=== PATIENT | male | born 1970 | race Caucasian/White ===

== ENCOUNTER 2017-12-20 13:54 | Inpatient (IN) | payer OTHER ==
[2017-12-20 14:37] VITALS: BMI 26.6
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
[2017-12-20] MEDS ORDERED: MAGNESIUM HYDROX 2400MG/30ML ORAL SUSPENSION 30 ML CUP PO PRN (15:08)
[2017-12-20] MEDS ORDERED: P-EPHED 60MG/TRIPROLIDI 2.5MG TABLET PO PRN (15:08)
[2017-12-20] MEDS ORDERED: LOPERAMIDE HCL 2 MG CAPSULE PO PRN (15:08)
[2017-12-20] MEDS ORDERED: ACETAMINOPHEN 325 MG TABLET (FP) PO PRN (15:08)
[2017-12-20] MEDS ORDERED: MAGNESIUM CITRATE 300 ML BOTTLE PO PRN (15:08)
[2017-12-20] MEDS ORDERED: guaiFENesin/D-METHORPHAN HB 10 ML UNIT-DOSE CUPS PO PRN (15:08)
[2017-12-20] MEDS ORDERED: chlordiazePOXIDE HCL 25 MG CAPSULE PO ONE (15:08)
[2017-12-20] MEDS ORDERED: IBUPROFEN 400 MG TABLET (FP) PO PRN (15:08)
[2017-12-20] MEDS ORDERED: MAG HYDROX/AL HYDROX/SIMETH 30 ML UNIT-DOSE CUP PO PRN (15:08)
[2017-12-20] MEDS ORDERED: MENTHOL/PHENOL 1 EACH UD MM PRN (15:08)
[2017-12-20] MEDS: chlordiazePOXIDE HCL 25 MG CAPSULE PO SCH ×2 (18:00→22:26)
[2017-12-20] MEDS ORDERED: MELATONIN 5 MG TABLETS PO PRN (22:00)
[2017-12-20] MEDS: THIAMINE HCL 100 MG TABLET (FP) PO SCH (22:26)
[2017-12-20 23:24] LABS: URINE APPEARANCE TURBID; URINE BILIRUBIN NEGATIVE (<2.0 mg/dL); URINE COLOR AMBER; URINE GLUCOSE (UA) NEGATIVE (NEGATIVE); URINE KETONE NEGATIVE (NEGATIVE); URINE LEUK ESTERASE NEGATIVE (NEGATIVE); URINE NITRITE NEGATIVE (NEGATIVE)
[2017-12-20 23:27] LABS: URINE PROTEIN 1+ (NEGATIVE)
[2017-12-20 23:36] LABS: URINE MUCUS MANY
[2017-12-21] MEDS: chlordiazePOXIDE HCL 25 MG CAPSULE PO SCH ×4 (05:38→22:45)
[2017-12-21 10:16] LABS: HEMATOCRIT 40.1 % (35.4-49); HEMOGLOBIN 13.6 GM/dL (11.7-16.9); MCH 31.7 pg (25.7-33.7); MEAN CELL VOLUME 93.4 fl (80-96); MEAN PLT VOLUME 8.4 fl (7.5-11.1); PLATELET COUNT 195 K/MM3 (134-434); RBC 4.29 M/mm3 (4.00-5.60); RDW 14.6 % (11.9-15.9); WHITE BLOOD COUNT 5.3 K/mm3 (4.0-10.0)
[2017-12-21] MEDS: PRENATAL VITAMINS W/ FOLIC ACID TABLET (FP) PO SCH (10:26)
[2017-12-21] MEDS: hydrOXYzine PAMOATE 25 MG CAPSULE (FP) PO PRN ×2 (10:30→22:46)
[2017-12-21 10:35] LABS: ALBUMIN 3.2 g/dl (3.4-5.0); ALK PHOS 74 U/L (45-117); ANION GAP 10 MMOL/L (8-16); BLOOD UREA NITROGEN 10 mg/dL (7-18); CHLORIDE 100 mmol/L (98-107); CO2 28 mmol/L (21-32); CREATININE 0.5 mg/dL (0.55-1.3); GLUCOSE,RANDOM 75 mg/dL (74-106); POTASSIUM 3.6 mmol/L (3.5-5.1); SGOT/AST 70 U/L (15-37); SGPT/ALT 108 U/L (13-61); SODIUM 138 mmol/L (136-145); TOT PROT 6.7 g/dl (6.4-8.2)
[2017-12-21] MEDS ORDERED: ONDANSETRON *ODT* 4 MG TABLET SL ONE (10:38)
[2017-12-21] MEDS: RANITIDINE HCL 150 MG TABLET (FP) PO SCH ×2 (10:50→22:45)
[2017-12-21] MEDS: BACLOFEN 10 MG TABLET (FP) PO SCH ×2 (14:54→22:45)
--- NOTE | 2017-12-21 17:05 | PN ---
S CIWA - CIWA Score Nausea/Vomitin-Mild Nausea/No Vomiting Muscle Tremors: 3 Anxiety: 3 Agitation: 3 Paroxysmal Sweats: 1-Minimal Palms Moist Orientation: 0-Oriented Tacttile Disturbances: 1-Very Mild Itch/Numbness Auditory Disturbances: 0-None Visual Disturbances: 0-None Headache: 0-None Present CIWA-Ar Total Score: 12 BHS Progress Note (SOAP) Subjective: gi distress tremor sweat nausea restlessness Objective: 12/21/17 17:06 Vital Signs Temperature 97.9 F 12/21/17 16:49 Pulse Rate 59 L 12/21/17 16:49 Respiratory Rate 18 12/21/17 16:49 Blood Pressure 139/86 12/21/17 16:49 O2 Sat by Pulse Oximetry (%) Laboratory Last Values WBC 5.3 K/mm3 (4.0-10.0) 12/21/17 07:30 RBC 4.29 M/mm3 (4.00-5.60) 12/21/17 07:30 Hgb 13.6 GM/dL (11.7-16.9) 12/21/17 07:30 Hct 40.1 % (35.4-49) 12/21/17 07:30 MCV 93.4 fl (80-96) 12/21/17 07:30 MCH 31.7 pg (25.7-33.7) 12/21/17 07:30 MCHC 34.0 g/dl (32.0-35.9) 12/21/17 07:30 RDW 14.6 % (11.9-15.9) 12/21/17 07:30 Plt Count 195 K/MM3 (134-434) 12/21/17 07:30 MPV 8.4 fl (7.5-11.1) 12/21/17 07:30 Sodium 138 mmol/L (136-145) 12/21/17 07:30 Potassium 3.6 mmol/L (3.5-5.1) 12/21/17 07:30 Chloride 100 mmol/L (98-107) 12/21/17 07:30 Carbon Dioxide 28 mmol/L (21-32) 12/21/17 07:30 Anion Gap 10 MMOL/L (8-16) 12/21/17 07:30 BUN 10 mg/dL (7-18) 12/21/17 07:30 Creatinine 0.5 mg/dL (0.55-1.3) L 12/21/17 07:30 Creat Clearance w eGFR > 60 (>60) 12/21/17 07:30 Random Glucose 75 mg/dL (74-106) 12/21/17 07:30 Calcium 8.0 mg/dL (8.5-10.1) L 12/21/17 07:30 Total Bilirubin 1.0 mg/dL (0.2-1) 12/21/17 07:30 AST 70 U/L (15-37) H 12/21/17 07:30 ALT 108 U/L (13-61) H 12/21/17 07:30 Alkaline Phosphatase 74 U/L (45-117) 12/21/17 07:30 Total Protein 6.7 g/dl (6.4-8.2) 12/21/17 07:30 Albumin 3.2 g/dl (3.4-5.0) L 12/21/17 07:30 Urine Color [place] 12/20/17 21:00 Urine Appearance Turbid 12/20/17 21:00 Urine pH 5.0 (5.0-8.0) 12/20/17 21:00 Ur Specific [place] 1.023 (1.001-1.035) 12/20/17 21:00 Urine Protein 1+ (NEGATIVE) H 12/20/17 21:00 Urine Glucose (UA) Negative (NEGATIVE) 12/20/17 21:00 Urine Ketones Negative (NEGATIVE) 12/20/17 21:00 Urine Blood Negative (NEGATIVE) 12/20/17 21:00 Urine Nitrite Negative (NEGATIVE) 12/20/17 21:00 Urine Bilirubin Negative (<2.0 mg/dL) 12/20/17 21:00 Urine Urobilinogen 2.0 mg/dL (0.2-1.0) 12/20/17 21:00 Ur Leukocyte Esterase Negative (NEGATIVE) 12/20/17 21:00 Urine WBC (Auto) 5 /hpf (3-5) 12/20/17 21:00 Urine RBC (Auto) 2 /hpf (0-3) 12/20/17 21:00 Urine Mucus Many 12/20/17 21:00 RPR Titer Nonreactive (NONREACTIVE) 12/21/17 07:30 lab noted Assessment: 12/21/17 17:06 withdrawal sx Plan: continue detox
[2017-12-21] MEDS: THIAMINE HCL 100 MG TABLET (FP) PO SCH (22:45)
[2017-12-22] MEDS: BACLOFEN 10 MG TABLET (FP) PO SCH ×3 (05:37→22:04)
[2017-12-22] MEDS: chlordiazePOXIDE HCL 25 MG CAPSULE PO SCH ×2 (05:37→10:05)
[2017-12-22] MEDS: hydrOXYzine PAMOATE 25 MG CAPSULE (FP) PO PRN (07:17)
[2017-12-22] MEDS: PRENATAL VITAMINS W/ FOLIC ACID TABLET (FP) PO SCH (10:05)
[2017-12-22] MEDS: RANITIDINE HCL 150 MG TABLET (FP) PO SCH ×2 (10:05→22:04)
[2017-12-22] MEDS: chlordiazePOXIDE HCL 25 MG CAPSULE PO PRN (12:26)
--- NOTE | 2017-12-22 12:36 | PN ---
S CIWA - CIWA Score Nausea/Vomitin-No Nausea/No Vomiting Muscle Tremors: 4-Moderate,w/Arms Extend Anxiety: 3 Agitation: 3 Paroxysmal Sweats: No Perspiration Orientation: 0-Oriented Tacttile Disturbances: 0-None Auditory Disturbances: 0-None Visual Disturbances: 0-None Headache: 0-None Present CIWA-Ar Total Score: 10 BHS Progress Note (SOAP) Subjective: C/o still feeling shaky and anxious. Increased tenderness (R). Objective: A&O x 3. Mod. tremors of hands. Pacing in halls. (R) elbow with 3 inch cicula4 induration, erythema, warmth, and tenderness. Small open area area w/ small amount yellowish- reddish drainage, Vital Signs 12/22/17 12/22/17 12/22/17 06:52 09: 13:49 Temperature 96.3 F L 97.0 F L 96.0 F L Pulse Rate 57 L 98 H 96 H Respiratory 18 18 20 Rate Blood Pressure 130/82 125/87 152/90 Lab Results WBC 5.3 K/mm3 (4.0-10.0) 12/21/17 07:30 RBC 4.29 M/mm3 (4.00-5.60) 12/21/17 07:30 Hgb 13.6 GM/dL (11.7-16.9) 12/21/17 07:30 Hct 40.1 % (35.4-49) 12/21/17 07:30 MCV 93.4 fl (80-96) 12/21/17 07:30 MCHC 34.0 g/dl (32.0-35.9) 12/21/17 07:30 RDW 14.6 % (11.9-15.9) 12/21/17 07:30 Plt Count 195 K/MM3 (134-434) 12/21/17 07:30 Sodium 138 mmol/L (136-145) 12/21/17 07:30 Potassium 3.6 mmol/L (3.5-5.1) 12/21/17 07:30 Chloride 100 mmol/L (98-107) 12/21/17 07:30 Carbon Dioxide 28 mmol/L (21-32) 12/21/17 07:30 Anion Gap 10 MMOL/L (8-16) 12/21/17 07:30 BUN 10 mg/dL (7-18) 12/21/17 07:30 Creatinine 0.5 mg/dL (0.55-1.3) L 12/21/17 07:30 Random Glucose 75 mg/dL (74-106) 12/21/17 07:30 Calcium 8.0 mg/dL (8.5-10.1) L 12/21/17 07:30 Labs reviewed. 12/22/17 14:35 Assessment: Withdrawal symptoms Cellulitis (R) elbow. Plan: Continue detox. Start Keflex 500 mg PO QID Bacitracin to (R) elbow BID and cover w/ area bandaid. Warm compresses to elbow QID
[2017-12-22] MEDS: CEPHALEXIN MONOHYDRATE 500 MG CAPSULE (UD) PO SCH ×2 (17:34→23:06)
[2017-12-22] MEDS: chlordiazePOXIDE 5 MG CAPSULE PO SCH ×2 (17:34→22:04)
[2017-12-22] MEDS: THIAMINE HCL 100 MG TABLET (FP) PO SCH (22:04)
[2017-12-22] MEDS: BACITRACIN 0.9 GM PACKET TP SCH (22:04)
[2017-12-23] MEDS: chlordiazePOXIDE HCL 25 MG CAPSULE PO PRN (02:44)
[2017-12-23] MEDS: chlordiazePOXIDE 5 MG CAPSULE PO SCH ×2 (05:22→10:46)
[2017-12-23] MEDS: BACLOFEN 10 MG TABLET (FP) PO SCH ×3 (05:22→22:10)
[2017-12-23] MEDS: CEPHALEXIN MONOHYDRATE 500 MG CAPSULE (UD) PO SCH ×4 (05:22→23:21)
[2017-12-23] MEDS: RANITIDINE HCL 150 MG TABLET (FP) PO SCH ×2 (10:46→22:10)
[2017-12-23] MEDS: PRENATAL VITAMINS W/ FOLIC ACID TABLET (FP) PO SCH (10:46)
[2017-12-23] MEDS: BACITRACIN 0.9 GM PACKET TP SCH ×2 (10:46→22:10)
--- NOTE | 2017-12-23 15:04 | PN ---
S Progress Note (SOAP) Subjective: feeling better no tremor less sweat no gi distress Objective: 12/23/17 15:04 Vital Signs Temperature 96.8 F L 12/23/17 13:14 Pulse Rate 99 H 12/23/17 13:14 Respiratory Rate 18 12/23/17 13:14 Blood Pressure 133/84 12/23/17 13:14 O2 Sat by Pulse Oximetry (%) Laboratory Last Values WBC 5.3 K/mm3 (4.0-10.0) 12/21/17 07:30 RBC 4.29 M/mm3 (4.00-5.60) 12/21/17 07:30 Hgb 13.6 GM/dL (11.7-16.9) 12/21/17 07:30 Hct 40.1 % (35.4-49) 12/21/17 07:30 MCV 93.4 fl (80-96) 12/21/17 07:30 MCH 31.7 pg (25.7-33.7) 12/21/17 07:30 MCHC 34.0 g/dl (32.0-35.9) 12/21/17 07:30 RDW 14.6 % (11.9-15.9) 12/21/17 07:30 Plt Count 195 K/MM3 (134-434) 12/21/17 07:30 MPV 8.4 fl (7.5-11.1) 12/21/17 07:30 Sodium 138 mmol/L (136-145) 12/21/17 07:30 Potassium 3.6 mmol/L (3.5-5.1) 12/21/17 07:30 Chloride 100 mmol/L (98-107) 12/21/17 07:30 Carbon Dioxide 28 mmol/L (21-32) 12/21/17 07:30 Anion Gap 10 MMOL/L (8-16) 12/21/17 07:30 BUN 10 mg/dL (7-18) 12/21/17 07:30 Creatinine 0.5 mg/dL (0.55-1.3) L 12/21/17 07:30 Creat Clearance w eGFR > 60 (>60) 12/21/17 07:30 Random Glucose 75 mg/dL (74-106) 12/21/17 07:30 Calcium 8.0 mg/dL (8.5-10.1) L 12/21/17 07:30 Total Bilirubin 1.0 mg/dL (0.2-1) 12/21/17 07:30 AST 70 U/L (15-37) H 12/21/17 07:30 ALT 108 U/L (13-61) H 12/21/17 07:30 Alkaline Phosphatase 74 U/L (45-117) 12/21/17 07:30 Total Protein 6.7 g/dl (6.4-8.2) 12/21/17 07:30 Albumin 3.2 g/dl (3.4-5.0) L 12/21/17 07:30 Urine Color [place] 12/20/17 21:00 Urine Appearance Turbid 12/20/17 21:00 Urine pH 5.0 (5.0-8.0) 12/20/17 21:00 Ur Specific [place] 1.023 (1.001-1.035) 12/20/17 21:00 Urine Protein 1+ (NEGATIVE) H 12/20/17 21:00 Urine Glucose (UA) Negative (NEGATIVE) 12/20/17 21:00 Urine Ketones Negative (NEGATIVE) 12/20/17 21:00 Urine Blood Negative (NEGATIVE) 12/20/17 21:00 Urine Nitrite Negative (NEGATIVE) 12/20/17 21:00 Urine Bilirubin Negative (<2.0 mg/dL) 12/20/17 21:00 Urine Urobilinogen 2.0 mg/dL (0.2-1.0) 12/20/17 21:00 Ur Leukocyte Esterase Negative (NEGATIVE) 12/20/17 21:00 Urine WBC (Auto) 5 /hpf (3-5) 12/20/17 21:00 Urine RBC (Auto) 2 /hpf (0-3) 12/20/17 21:00 Urine Mucus Many 12/20/17 21:00 RPR Titer Nonreactive (NONREACTIVE) 12/21/17 07:30 lab noted Assessment: 12/23/17 15:05 mild withdrawal sx 12/23/17 15:05 right elbow cellulitis Plan: medically supervised detox keflex
[2017-12-23] MEDS: chlordiazePOXIDE HCL 10 MG CAPSULE PO SCH ×2 (17:52→22:10)
[2017-12-23] MEDS: THIAMINE HCL 100 MG TABLET (FP) PO SCH (22:10)
[2017-12-24] MEDS: hydrOXYzine PAMOATE 25 MG CAPSULE (FP) PO PRN (01:16)
[2017-12-24] MEDS: CEPHALEXIN MONOHYDRATE 500 MG CAPSULE (UD) PO SCH (06:04)
[2017-12-24] MEDS: chlordiazePOXIDE HCL 10 MG CAPSULE PO SCH (06:04)
[2017-12-24] MEDS: BACLOFEN 10 MG TABLET (FP) PO SCH (06:05)
[2017-12-24 08:17] VITALS: TEMP 97.5
--- NOTE | 2017-12-24 09:00 | DS ---
[facility] Detox Discharge Summary Admission Date: 12/20/17 Discharge Date: 12/24/17 - History Present History: Alcohol Dependence Additional Comments: 47 years old male admitted on 12/20/17 for alcohol withdrawal sx completed alcohol detox regimen tolerated well denies alcohol withdrawal sx alert oriented x 3 no acute distress aftercare [facility] Physical Exam Results Vital Signs: Vital Signs Temperature 97.5 F L 12/24/17 08:16 Pulse Rate 64 12/24/17 08:16 Respiratory Rate 18 12/24/17 08:16 Blood Pressure 138/76 12/24/17 08:16 O2 Sat by Pulse Oximetry (%) Pertinent Admission Physical Exam Findings: alcohol withdrawal sx Vital Signs Temperature 97.5 F L 12/24/17 09:34 Pulse Rate 89 12/24/17 09:34 Respiratory Rate 18 12/24/17 09:34 Blood Pressure 136/89 12/24/17 09:34 O2 Sat by Pulse Oximetry (%) Laboratory Last Values WBC 5.3 K/mm3 (4.0-10.0) 12/21/17 07:30 RBC 4.29 M/mm3 (4.00-5.60) 12/21/17 07:30 Hgb 13.6 GM/dL (11.7-16.9) 12/21/17 07:30 Hct 40.1 % (35.4-49) 12/21/17 07:30 MCV 93.4 fl (80-96) 12/21/17 07:30 MCH 31.7 pg (25.7-33.7) 12/21/17 07:30 MCHC 34.0 g/dl (32.0-35.9) 12/21/17 07:30 RDW 14.6 % (11.9-15.9) 12/21/17 07:30 Plt Count 195 K/MM3 (134-434) 12/21/17 07:30 MPV 8.4 fl (7.5-11.1) 12/21/17 07:30 Sodium 138 mmol/L (136-145) 12/21/17 07:30 Potassium 3.6 mmol/L (3.5-5.1) 12/21/17 07:30 Chloride 100 mmol/L (98-107) 12/21/17 07:30 Carbon Dioxide 28 mmol/L (21-32) 12/21/17 07:30 Anion Gap 10 MMOL/L (8-16) 12/21/17 07:30 BUN 10 mg/dL (7-18) 12/21/17 07:30 Creatinine 0.5 mg/dL (0.55-1.3) L 12/21/17 07:30 Creat Clearance w eGFR > 60 (>60) 12/21/17 07:30 Random Glucose 75 mg/dL (74-106) 12/21/17 07:30 Calcium 8.0 mg/dL (8.5-10.1) L 12/21/17 07:30 Total Bilirubin 1.0 mg/dL (0.2-1) 12/21/17 07:30 AST 70 U/L (15-37) H 12/21/17 07:30 ALT 108 U/L (13-61) H 12/21/17 07:30 Alkaline Phosphatase 74 U/L (45-117) 12/21/17 07:30 Total Protein 6.7 g/dl (6.4-8.2) 12/21/17 07:30 Albumin 3.2 g/dl (3.4-5.0) L 12/21/17 07:30 Urine Color [place] 12/20/17 21:00 Urine Appearance Turbid 12/20/17 21:00 Urine pH 5.0 (5.0-8.0) 12/20/17 21:00 Ur Specific [place] 1.023 (1.001-1.035) 12/20/17 21:00 Urine Protein 1+ (NEGATIVE) H 12/20/17 21:00 Urine Glucose (UA) Negative (NEGATIVE) 12/20/17 21:00 Urine Ketones Negative (NEGATIVE) 12/20/17 21:00 Urine Blood Negative (NEGATIVE) 12/20/17 21:00 Urine Nitrite Negative (NEGATIVE) 12/20/17 21:00 Urine Bilirubin Negative (<2.0 mg/dL) 12/20/17 21:00 Urine Urobilinogen 2.0 mg/dL (0.2-1.0) 12/20/17 21:00 Ur Leukocyte Esterase Negative (NEGATIVE) 12/20/17 21:00 Urine WBC (Auto) 5 /hpf (3-5) 12/20/17 21:00 Urine RBC (Auto) 2 /hpf (0-3) 12/20/17 21:00 Urine Mucus Many 12/20/17 21:00 RPR Titer Nonreactive (NONREACTIVE) 12/21/17 07:30 lab noted - Treatment Hospital Course: Detox Protocol Followed, Detoxed Safely, Responded well, Discharged Condition Good, Rehab Referral Accepted Patient has Accepted a Rehab Referral to: [facility] - Medication Discharge Medications: Ambulatory Orders Cephalexin Monohydrate [Keflex -] 500 mg PO Q6HPO #20 capsule 12/23/17 - Diagnosis (1) Alcohol dependence with uncomplicated withdrawal Status: Acute - AMA Did Patient Leave Against Medical Advice: No
[2017-12-24 09:35] VITALS: BP 136/89; PULSE 89
== END 2017-12-24 09:36 | disposition home or self-care (01) | DRG 775 ==
LOC: YASAS 13:54 → Y6N 14:59
PROC: HZ2ZZZZ Detoxification Services for Substance Abuse Treatment (ICD-10-PCS; principal; 2017-12-20)
DX: F10.230 Alcohol dependence with withdrawal, uncomplicated (principal); E86.0 Dehydration; L03.113 Cellulitis of right upper limb; M25.422 Effusion, left elbow
CPT/HCPCS: 36415; 80053; 81003; 81015; 85027; 86593; J0475; Q0162

== ENCOUNTER 2020-10-16 18:40 | Inpatient (IN) | payer OTHER ==
[2020-10-16 21:15] VITALS: BMI 28.0
[2020-10-16] MEDS ORDERED: LORazepam 1 MG TABLET PO PRN (22:16)
[2020-10-16] MEDS ORDERED: BISMUTH SUBSALICYLATE 524 MG/30 ML PO PRN (22:16)
[2020-10-16] MEDS ORDERED: ONDANSETRON *ODT* 4 MG TABLET SL PRN (22:16)
[2020-10-16] MEDS ORDERED: ACETAMINOPHEN 325 MG TABLET (FP) PO PRN ×2 (22:16)
[2020-10-16] MEDS ORDERED: IBUPROFEN 400 MG TABLET (FP) PO PRN (22:16)
[2020-10-16] MEDS ORDERED: MAG HYDROX/AL HYDROX/SIMETH 30 ML UNIT-DOSE CUP PO PRN (22:16)
[2020-10-16] MEDS ORDERED: MAGNESIUM HYDROX 2400MG/30ML ORAL SUSPENSION 30 ML CUP PO PRN (22:16)
[2020-10-16] MEDS ORDERED: MENTHOL/PHENOL 1 EACH UD MM PRN (22:16)
[2020-10-16] MEDS ORDERED: MAGNESIUM CITRATE 300 ML BOTTLE PO PRN (22:16)
[2020-10-16] MEDS ORDERED: NICOTINE POLACRILEX 2 MG GUM BUC PRN (22:16)
[2020-10-16] MEDS ORDERED: METHOCARBAMOL 500 MG TABLET PO PRN (22:16)
[2020-10-16] MEDS: LORazepam 2 MG TABLET PO SCH (23:50)
[2020-10-17] MEDS: LORazepam 2 MG TABLET PO SCH ×4 (05:22→22:15)
[2020-10-17] MEDS ORDERED: hydrOXYzine PAMOATE 25 MG CAPSULE (FP) PO SCH (06:00)
[2020-10-17] MEDS ORDERED: hydrOXYzine PAMOATE 25 MG CAPSULE (FP) PO PRN (09:12)
[2020-10-17 10:08] LABS: HEMATOCRIT 42.2 % (35.4-49); HEMOGLOBIN 14.3 GM/dL (11.7-16.9); MCH 30.7 pg (25.7-33.7); MCHC 33.8 g/dl (32.0-35.9); MEAN CELL VOLUME 90.9 fl (80-96); MEAN PLT VOLUME 9.1 fl (7.5-11.1); PLATELET COUNT 198 10^3/uL (134-434); RBC 4.64 M/mm3 (4.00-5.60); RDW 14.6 % (11.9-15.9); WHITE BLOOD COUNT 7.1 K/mm3 (4.0-10.0)
[2020-10-17 10:20] LABS: ALBUMIN 3.8 g/dl (3.4-5.0); BLOOD UREA NITROGEN 6.4 mg/dL (7-18); CALCIUM 8.4 mg/dL (8.5-10.1)
[2020-10-17 10:24] LABS: CREATININE 1.5 mg/dL (0.55-1.3)
[2020-10-17 10:25] LABS: BILIRUBIN,TOTAL 0.7 mg/dL (0.2-1)
[2020-10-17] MEDS: PRENATAL VITAMINS W/ FOLIC ACID TABLET (FP) PO SCH (10:30)
[2020-10-17] MEDS ORDERED: POTASSIUM CHLORIDE TABS 20 MEQ TABLET.ER (FP) PO ONE (10:45)
[2020-10-17] MEDS: BACITRACIN 0.9 GM PACKET TP SCH (11:00)
[2020-10-17 18:44] LABS: HIV INTERPRETATION NEGATIVE (NEGATIVE)
[2020-10-17] MEDS: THIAMINE HCL 100 MG TABLET (FP) PO SCH (22:15)
[2020-10-17] MEDS: MELATONIN 5 MG TABLETS PO SCH (22:15)
[2020-10-18] MEDS: LORazepam 1 MG TABLET PO SCH ×4 (06:01→22:12)
[2020-10-18] MEDS: BACITRACIN 0.9 GM PACKET TP SCH (10:19)
[2020-10-18] MEDS: PRENATAL VITAMINS W/ FOLIC ACID TABLET (FP) PO SCH (10:20)
[2020-10-18 10:22] LABS: HEMATOCRIT 41.9 % (35.4-49); MCH 30.6 pg (25.7-33.7); MCHC 33.5 g/dl (32.0-35.9); MEAN CELL VOLUME 91.3 fl (80-96); PLATELET COUNT 184 10^3/uL (134-434); RBC 4.59 M/mm3 (4.00-5.60); RDW 14.5 % (11.9-15.9); WHITE BLOOD COUNT 6.2 K/mm3 (4.0-10.0)
[2020-10-18] MEDS: THIAMINE HCL 100 MG TABLET (FP) PO SCH (22:12)
[2020-10-18] MEDS: MELATONIN 5 MG TABLETS PO SCH (22:14)
[2020-10-19] MEDS ORDERED: LORazepam 0.5 MG TABLET PO PRN
[2020-10-19] MEDS: LORazepam 0.5 MG TABLET PO SCH ×4 (05:56→22:20)
[2020-10-19] MEDS: PRENATAL VITAMINS W/ FOLIC ACID TABLET (FP) PO SCH (10:16)
[2020-10-19] MEDS: BACITRACIN 0.9 GM PACKET TP SCH (10:17)
[2020-10-19 11:04] LABS: BLOOD UREA NITROGEN 12.6 mg/dL (7-18); CALCIUM 8.7 mg/dL (8.5-10.1)
[2020-10-19 11:05] LABS: ALBUMIN 3.6 g/dl (3.4-5.0)
[2020-10-19 11:09] LABS: BILIRUBIN,TOTAL 0.5 mg/dL (0.2-1); CREATININE 0.8 mg/dL (0.55-1.3); TOT PROT 6.7 g/dl (6.4-8.2)
[2020-10-19] MEDS: MELATONIN 5 MG TABLETS PO SCH (22:20)
[2020-10-19] MEDS: THIAMINE HCL 100 MG TABLET (FP) PO SCH (22:20)
[2020-10-20] MEDS ORDERED: LORazepam 0.5 MG TABLET PO ONE (05:00)
[2020-10-20 07:01] VITALS: BP 136/76; PULSE 98; TEMP 98.1
== END 2020-10-20 09:21 | disposition home or self-care (01) | DRG 775 ==
LOC: YASAS 18:40 → Y3N 22:11
PROVIDERS: ADMIT Allergy & Immunology; ATTEND Allergy & Immunology
PROC: HZ2ZZZZ Detoxification Services for Substance Abuse Treatment (ICD-10-PCS; principal; 2020-10-16)
DX: F10.230 Alcohol dependence with withdrawal, uncomplicated (principal)
CPT/HCPCS: 36415; 80053; 85027; 86780; 87389; C9803; U0003; U0005

== ENCOUNTER 2020-12-02 08:10 | Inpatient (IN) | payer OTHER ==
[2020-12-02] MEDS ORDERED: MAGNESIUM HYDROX 2400MG/30ML ORAL SUSPENSION 30 ML CUP PO PRN (09:18)
[2020-12-02] MEDS ORDERED: NICOTINE 10 MG CARTRIDGE (INHALER) IH PRN (09:18)
[2020-12-02] MEDS ORDERED: LORazepam 1 MG TABLET PO PRN (09:18)
[2020-12-02] MEDS ORDERED: ONDANSETRON *ODT* 4 MG TABLET SL PRN (09:18)
[2020-12-02] MEDS ORDERED: METHOCARBAMOL 500 MG TABLET PO PRN (09:18)
[2020-12-02] MEDS ORDERED: MENTHOL/PHENOL 1 EACH UD MM PRN (09:18)
[2020-12-02] MEDS ORDERED: MAGNESIUM CITRATE 300 ML BOTTLE PO PRN (09:18)
[2020-12-02] MEDS ORDERED: MAG HYDROX/AL HYDROX/SIMETH 30 ML UNIT-DOSE CUP PO PRN (09:18)
[2020-12-02] MEDS ORDERED: ACETAMINOPHEN 325 MG TABLET (FP) PO PRN ×2 (09:18)
[2020-12-02] MEDS ORDERED: BISMUTH SUBSALICYLATE 524 MG/30 ML PO PRN (09:18)
[2020-12-02] MEDS ORDERED: LORazepam 2 MG TABLET ONE (12:03)
[2020-12-02] MEDS ORDERED: hydrOXYzine PAMOATE 25 MG CAPSULE (FP) PO ONE (12:03)
[2020-12-02] MEDS: LORazepam 2 MG TABLET PO SCH ×3 (12:12→22:37)
[2020-12-02] MEDS: hydrOXYzine PAMOATE 25 MG CAPSULE (FP) PO SCH ×4 (12:13→22:37)
[2020-12-02] MEDS ORDERED: MASKS NR ONE (12:39)
[2020-12-02] MEDS: PRENATAL VITAMINS W/ FOLIC ACID TABLET (FP) PO SCH (12:40)
[2020-12-02 14:24] VITALS: BMI 28.3
[2020-12-02] MEDS: MELATONIN 5 MG TABLETS PO SCH (22:37)
[2020-12-02] MEDS: THIAMINE HCL 100 MG TABLET (FP) PO SCH (22:37)
[2020-12-03] MEDS: hydrOXYzine PAMOATE 25 MG CAPSULE (FP) PO SCH ×5 (06:37→22:15)
[2020-12-03] MEDS: LORazepam 2 MG TABLET PO SCH ×4 (06:37→22:15)
[2020-12-03] MEDS: PRENATAL VITAMINS W/ FOLIC ACID TABLET (FP) PO SCH (11:03)
[2020-12-03] MEDS: THIAMINE HCL 100 MG TABLET (FP) PO SCH (22:15)
[2020-12-03] MEDS: MELATONIN 5 MG TABLETS PO SCH (22:16)
[2020-12-04] MEDS: LORazepam 1 MG TABLET PO SCH ×4 (06:35→22:03)
[2020-12-04] MEDS: hydrOXYzine PAMOATE 25 MG CAPSULE (FP) PO SCH ×5 (06:37→22:05)
[2020-12-04] MEDS: PRENATAL VITAMINS W/ FOLIC ACID TABLET (FP) PO SCH (10:13)
[2020-12-04] MEDS ORDERED: PNEUMOC 13-VAL CONJ-DIP CRM/PF 0.5 ML DISP.SYRIN IM ONE (12:00)
[2020-12-04] MEDS ORDERED: PNEUMOCOCCAL 23 VACCINE 0.5 ML VIAL IM ONE (12:00)
[2020-12-04] MEDS: IBUPROFEN 400 MG TABLET (FP) PO PRN (17:33)
[2020-12-04 18:25] LABS: HEMATOCRIT 39.9 % (35.4-49); HEMOGLOBIN 13.7 GM/dL (11.7-16.9); MCHC 34.4 g/dl (32.0-35.9); MEAN CELL VOLUME 93.1 fl (80-96); MEAN PLT VOLUME 10.8 fl (7.5-11.1); PLATELET COUNT 158 10^3/uL (134-434); RBC 4.29 M/mm3 (4.00-5.60); RDW 14.5 % (11.9-15.9); WHITE BLOOD COUNT 5.8 K/mm3 (4.0-10.0)
[2020-12-04 18:39] LABS: CALCIUM 8.9 mg/dL (8.5-10.1)
[2020-12-04 18:40] LABS: ALBUMIN 3.9 g/dl (3.4-5.0); BLOOD UREA NITROGEN 12.6 mg/dL (7-18)
[2020-12-04 18:43] LABS: CREATININE 0.8 mg/dL (0.55-1.3)
[2020-12-04 18:45] LABS: BILIRUBIN,TOTAL 0.7 mg/dL (0.2-1); TOT PROT 7.5 g/dl (6.4-8.2)
[2020-12-04] MEDS: THIAMINE HCL 100 MG TABLET (FP) PO SCH (22:03)
[2020-12-04] MEDS: MELATONIN 5 MG TABLETS PO SCH (22:06)
[2020-12-05] MEDS ORDERED: LORazepam 0.5 MG TABLET PO PRN
[2020-12-05] MEDS: LORazepam 0.5 MG TABLET PO SCH ×4 (05:26→22:15)
[2020-12-05] MEDS: hydrOXYzine PAMOATE 25 MG CAPSULE (FP) PO SCH (06:57)
[2020-12-05] MEDS ORDERED: hydrOXYzine PAMOATE 25 MG CAPSULE (FP) PO PRN (09:08)
[2020-12-05] MEDS: PRENATAL VITAMINS W/ FOLIC ACID TABLET (FP) PO SCH (10:01)
[2020-12-05] MEDS: IBUPROFEN 400 MG TABLET (FP) PO PRN (22:14)
[2020-12-05] MEDS: THIAMINE HCL 100 MG TABLET (FP) PO SCH (22:14)
[2020-12-05] MEDS: MELATONIN 5 MG TABLETS PO SCH (22:15)
[2020-12-06] MEDS ORDERED: LORazepam 0.5 MG TABLET PO ONE (05:00)
[2020-12-06 06:09] VITALS: BP 129/79; PULSE 64; TEMP 96.9
[2020-12-06] MEDS: PRENATAL VITAMINS W/ FOLIC ACID TABLET (FP) PO SCH (10:21)
== END 2020-12-06 08:57 | disposition home or self-care (01) | DRG 775 ==
LOC: YASAS 08:10 → Y3N 11:46
PROVIDERS: ADMIT Allergy & Immunology; ATTEND Allergy & Immunology
PROC: HZ2ZZZZ Detoxification Services for Substance Abuse Treatment (ICD-10-PCS; principal; 2020-12-02)
DX: F10.230 Alcohol dependence with withdrawal, uncomplicated (principal); R73.9 Hyperglycemia, unspecified; R74.8 Abnormal levels of other serum enzymes
CPT/HCPCS: 36415; 80053; 85027; 86780; 90732; C9803; G0009; U0003; U0005

== ENCOUNTER 2021-04-09 17:55 | Inpatient (IN) | payer OTHER ==
[2021-04-09 19:59] VITALS: BMI 25.9
[2021-04-09] MEDS ORDERED: MAG HYDROX/AL HYDROX/SIMETH 30 ML UNIT-DOSE CUP PO PRN (21:31)
[2021-04-09] MEDS ORDERED: IBUPROFEN 400 MG TABLET (FP) PO PRN (21:31)
[2021-04-09] MEDS ORDERED: MAGNESIUM HYDROX 2400MG/30ML ORAL SUSPENSION 30 ML CUP PO PRN (21:31)
[2021-04-09] MEDS ORDERED: MENTHOL/PHENOL 1 EACH UD MM PRN (21:31)
[2021-04-09] MEDS ORDERED: MAGNESIUM CITRATE 300 ML BOTTLE PO PRN (21:31)
[2021-04-09] MEDS ORDERED: METHOCARBAMOL 500 MG TABLET PO PRN (21:31)
[2021-04-09] MEDS ORDERED: BISMUTH SUBSALICYLATE 524 MG/30 ML PO PRN (21:31)
[2021-04-09] MEDS ORDERED: ACETAMINOPHEN 325 MG TABLET (FP) PO PRN ×2 (21:31)
[2021-04-10] MEDS ORDERED: LORazepam 1 MG TABLET PO PRN (00:26)
[2021-04-10] MEDS: ONDANSETRON *ODT* 4 MG TABLET SL PRN ×2 (03:10→17:52)
[2021-04-10] MEDS: MELATONIN 5 MG TABLETS PO SCH ×2 (03:13→22:21)
[2021-04-10] MEDS: THIAMINE HCL 100 MG TABLET (FP) PO SCH ×2 (03:13→22:20)
[2021-04-10] MEDS: LORazepam 2 MG TABLET PO SCH ×4 (05:41→22:20)
[2021-04-10] MEDS: PRENATAL VITAMINS W/ FOLIC ACID TABLET (FP) PO SCH (10:23)
[2021-04-10 10:46] LABS: HEMATOCRIT 40.1 % (35.4-49); HEMOGLOBIN 14.1 GM/dL (11.7-16.9); MCH 31.3 pg (25.7-33.7); MCHC 35.1 g/dl (32.0-35.9); MEAN CELL VOLUME 89.4 fl (80-96); PLATELET COUNT 199 10^3/uL (134-434); RBC 4.49 M/mm3 (4.00-5.60); RDW 13.9 % (11.9-15.9)
[2021-04-10 11:28] LABS: BLOOD UREA NITROGEN 11.2 mg/dL (7-18); CALCIUM 8.6 mg/dL (8.5-10.1)
[2021-04-10 11:30] LABS: CREATININE 0.6 mg/dL (0.55-1.3)
[2021-04-10 11:32] LABS: BILIRUBIN,TOTAL 1.1 mg/dL (0.2-1)
[2021-04-10 11:34] LABS: TOT PROT 7.1 g/dl (6.4-8.2)
[2021-04-10] MEDS: amLODIPine BESYLATE 5 MG TABLET (FP) PO SCH (15:33)
[2021-04-11] MEDS: LORazepam 1 MG TABLET PO SCH ×4 (05:44→22:34)
[2021-04-11] MEDS: amLODIPine BESYLATE 5 MG TABLET (FP) PO SCH (10:38)
[2021-04-11] MEDS: PRENATAL VITAMINS W/ FOLIC ACID TABLET (FP) PO SCH (10:38)
[2021-04-11] MEDS: THIAMINE HCL 100 MG TABLET (FP) PO SCH (22:33)
[2021-04-11] MEDS: MELATONIN 5 MG TABLETS PO SCH (22:34)
[2021-04-12] MEDS ORDERED: LORazepam 0.5 MG TABLET PO PRN
[2021-04-12] MEDS: LORazepam 0.5 MG TABLET PO SCH ×2 (06:13→11:31)
[2021-04-12 09:44] VITALS: BP 142/90; PULSE 94; TEMP 98
[2021-04-12] MEDS ORDERED: amLODIPine BESYLATE 10 MG TABLET (FP) PO SCH (10:00)
[2021-04-12] MEDS: PRENATAL VITAMINS W/ FOLIC ACID TABLET (FP) PO SCH (11:31)
[2021-04-13] MEDS ORDERED: LORazepam 0.5 MG TABLET PO ONE (05:00)
== END 2021-04-12 10:15 | disposition home or self-care (01) | DRG 773 ==
LOC: YASAS 17:55 → Y6N 04-10 01:48
PROVIDERS: ADMIT Allergy & Immunology; ATTEND Allergy & Immunology
PROC: HZ2ZZZZ Detoxification Services for Substance Abuse Treatment (ICD-10-PCS; principal; 2021-04-10)
DX: F10.230 Alcohol dependence with withdrawal, uncomplicated (principal); F11.20 Opioid dependence, uncomplicated; R74.01 Elevation of levels of liver transaminase levels; Z51.81 Encounter for therapeutic drug level monitoring; Z79.899 Other long term (current) drug therapy
CPT/HCPCS: 36415; 80053; 85027; 86780; C9803-CS; Q0162; U0003; U0005

== ENCOUNTER 2021-09-07 13:43 | Inpatient (IN) | payer OTHER ==
[2021-09-07 16:06] VITALS: BMI 26.6
[2021-09-07] MEDS ORDERED: LOPERAMIDE HCL 2 MG CAPSULE PO PRN (16:47)
[2021-09-07] MEDS ORDERED: ONDANSETRON *ODT* 4 MG TABLET SL PRN (16:47)
[2021-09-07] MEDS ORDERED: IBUPROFEN 600 MG TABLET (FP) PO PRN (16:47)
[2021-09-07] MEDS ORDERED: DICYCLOMINE HCL 10 MG CAPSULE PO PRN (16:47)
[2021-09-07] MEDS ORDERED: NICOTINE 10 MG CARTRIDGE (INHALER) IH PRN (16:47)
[2021-09-07] MEDS ORDERED: MAG HYDROX/AL HYDROX/SIMETH 30 ML UNIT-DOSE CUP PO PRN (16:47)
[2021-09-07] MEDS ORDERED: MAGNESIUM CITRATE 300 ML BOTTLE PO PRN (16:47)
[2021-09-07] MEDS ORDERED: BISMUTH SUBSALICYLATE 524 MG/30 ML PO PRN (16:47)
[2021-09-07] MEDS ORDERED: BENZOCAINE/MENTHOL (CHLORASEPTIC ) LOZENGE MM PRN (16:47)
[2021-09-07] MEDS ORDERED: NALOXONE HCL (KLOXXADO) 8 MG SPRAY NS PRN (16:47)
[2021-09-07] MEDS ORDERED: MAGNESIUM HYDROX 2400MG/30ML ORAL SUSPENSION 30 ML CUP PO PRN (16:47)
[2021-09-07] MEDS ORDERED: METHOCARBAMOL 500 MG TABLET PO PRN (16:47)
[2021-09-07] MEDS ORDERED: chlordiazePOXIDE HCL 25 MG CAPSULE PO PRN (16:47)
[2021-09-07] MEDS ORDERED: IBUPROFEN 400 MG TABLET (FP) PO PRN (16:47)
[2021-09-07] MEDS ORDERED: ACETAMINOPHEN 325 MG TABLET (FP) PO PRN ×2 (16:47)
[2021-09-07] MEDS ORDERED: chlordiazePOXIDE HCL 25 MG CAPSULE ONE (19:49)
[2021-09-07] MEDS: chlordiazePOXIDE HCL 25 MG CAPSULE PO SCH (23:18)
[2021-09-07] MEDS: hydrOXYzine PAMOATE 25 MG CAPSULE (FP) PO SCH ×2 (23:19→23:54)
[2021-09-07] MEDS: MELATONIN 5 MG TABLETS PO SCH (23:19)
[2021-09-07] MEDS: THIAMINE HCL 100 MG TABLET (FP) PO SCH (23:20)
[2021-09-08] MEDS: hydrOXYzine PAMOATE 25 MG CAPSULE (FP) PO SCH ×5 (05:23→22:53)
[2021-09-08] MEDS: chlordiazePOXIDE HCL 25 MG CAPSULE PO SCH ×4 (05:23→22:53)
[2021-09-08] MEDS: PRENATAL VITAMINS W/ FOLIC ACID TABLET (FP) PO SCH (10:17)
[2021-09-08 13:08] LABS: HEMATOCRIT 39.8 % (35.4-49); HEMOGLOBIN 13.6 GM/dL (11.7-16.9); MCH 31.8 pg (25.7-33.7); MCHC 34.1 g/dl (32.0-35.9); MEAN PLT VOLUME 8.4 fl (7.5-11.1); PLATELET COUNT 228 10^3/uL (134-434); RBC 4.28 M/mm3 (4.00-5.60); WHITE BLOOD COUNT 4.8 K/mm3 (4.0-10.0)
[2021-09-08 13:22] LABS: ALBUMIN 3.4 g/dl (3.4-5.0); BLOOD UREA NITROGEN 8.2 mg/dL (7-18); CALCIUM 8.8 mg/dL (8.5-10.1)
[2021-09-08 13:25] LABS: CREATININE 0.6 mg/dL (0.55-1.3)
[2021-09-08 13:27] LABS: BILIRUBIN,TOTAL 0.5 mg/dL (0.2-1); TOT PROT 6.5 g/dl (6.4-8.2)
[2021-09-08] MEDS: THIAMINE HCL 100 MG TABLET (FP) PO SCH (22:53)
[2021-09-08] MEDS: MELATONIN 5 MG TABLETS PO SCH (22:53)
[2021-09-09] MEDS: hydrOXYzine PAMOATE 25 MG CAPSULE (FP) PO SCH ×5 (05:21→22:13)
[2021-09-09] MEDS: chlordiazePOXIDE HCL 25 MG CAPSULE PO SCH ×4 (05:21→22:11)
[2021-09-09] MEDS: PRENATAL VITAMINS W/ FOLIC ACID TABLET (FP) PO SCH (10:54)
[2021-09-09] MEDS: LIP BALM (CHAPSTICK) TP SCH ×2 (15:14→22:10)
[2021-09-09] MEDS: THIAMINE HCL 100 MG TABLET (FP) PO SCH (22:10)
[2021-09-09] MEDS: MELATONIN 5 MG TABLETS PO SCH (22:11)
[2021-09-10] MEDS ORDERED: chlordiazePOXIDE HCL 10 MG CAPSULE PO PRN
[2021-09-10] MEDS: chlordiazePOXIDE HCL 10 MG CAPSULE PO SCH ×4 (05:24→22:28)
[2021-09-10] MEDS: hydrOXYzine PAMOATE 25 MG CAPSULE (FP) PO SCH ×3 (05:24→14:40)
[2021-09-10] MEDS: PRENATAL VITAMINS W/ FOLIC ACID TABLET (FP) PO SCH (10:05)
[2021-09-10] MEDS: BACITRACIN 0.9 GM PACKET TP SCH ×2 (12:43→22:28)
[2021-09-10] MEDS: LIP BALM (CHAPSTICK) TP SCH ×2 (12:43→22:29)
[2021-09-10] MEDS: NALTREXONE HCL 50 MG TABLET PO SCH (17:57)
[2021-09-10] MEDS: THIAMINE HCL 100 MG TABLET (FP) PO SCH (22:26)
[2021-09-10] MEDS: MELATONIN 5 MG TABLETS PO SCH (22:27)
[2021-09-11] MEDS: chlordiazePOXIDE HCL 10 MG CAPSULE PO SCH ×2 (05:32→18:10)
[2021-09-11] MEDS: PRENATAL VITAMINS W/ FOLIC ACID TABLET (FP) PO SCH (10:29)
[2021-09-11] MEDS: LIP BALM (CHAPSTICK) TP SCH ×2 (10:29→22:53)
[2021-09-11] MEDS: NALTREXONE HCL 50 MG TABLET PO SCH (10:29)
[2021-09-11] MEDS: BACITRACIN 0.9 GM PACKET TP SCH ×2 (10:29→22:53)
[2021-09-11] MEDS: THIAMINE HCL 100 MG TABLET (FP) PO SCH (22:51)
[2021-09-11] MEDS: MELATONIN 5 MG TABLETS PO SCH (22:52)
[2021-09-12] MEDS ORDERED: chlordiazePOXIDE HCL 10 MG CAPSULE PO ONE (05:00)
[2021-09-12 06:46] VITALS: BP 137/80; PULSE 86; TEMP 97.7
== END 2021-09-12 07:27 | disposition home or self-care (01) | DRG 773 ==
LOC: YASAS 13:43 → Y6N 18:03
PROVIDERS: ADMIT Allergy & Immunology; ATTEND Surgery
PROC: HZ2ZZZZ Detoxification Services for Substance Abuse Treatment (ICD-10-PCS; principal; 2021-09-07)
DX: F10.230 Alcohol dependence with withdrawal, uncomplicated (principal); F10.24 Alcohol dependence with alcohol-induced mood disorder; F11.20 Opioid dependence, uncomplicated; F14.10 Cocaine abuse, uncomplicated; F12.10 Cannabis abuse, uncomplicated; F32.A Depression, unspecified
CPT/HCPCS: 36415; 80053; 85027; 86780; C9803-CS; U0003; U0005

== ENCOUNTER 2021-10-13 12:02 | Inpatient (IN) | payer OTHER ==
[2021-10-13 13:14] VITALS: BMI 26.6
[2021-10-13] MEDS ORDERED: ACETAMINOPHEN 325 MG TABLET (FP) PO PRN ×2 (13:52)
[2021-10-13] MEDS ORDERED: chlordiazePOXIDE HCL 25 MG CAPSULE PO PRN (13:52)
[2021-10-13] MEDS ORDERED: MAG HYDROX/AL HYDROX/SIMETH 30 ML UNIT-DOSE CUP PO PRN (13:52)
[2021-10-13] MEDS ORDERED: ONDANSETRON *ODT* 4 MG TABLET SL PRN (13:52)
[2021-10-13] MEDS ORDERED: MAGNESIUM HYDROX 2400MG/30ML ORAL SUSPENSION 30 ML CUP PO PRN (13:52)
[2021-10-13] MEDS ORDERED: MAGNESIUM CITRATE 300 ML BOTTLE PO PRN (13:52)
[2021-10-13] MEDS ORDERED: LOPERAMIDE HCL 2 MG CAPSULE PO PRN (13:52)
[2021-10-13] MEDS ORDERED: DICYCLOMINE HCL 10 MG CAPSULE PO PRN (13:52)
[2021-10-13] MEDS ORDERED: BENZOCAINE/MENTHOL (CHLORASEPTIC ) LOZENGE MM PRN (13:52)
[2021-10-13] MEDS ORDERED: NICOTINE 10 MG CARTRIDGE (INHALER) IH PRN (13:52)
[2021-10-13] MEDS ORDERED: METHOCARBAMOL 500 MG TABLET PO PRN (13:52)
[2021-10-13] MEDS ORDERED: IBUPROFEN 600 MG TABLET (FP) PO PRN (13:52)
[2021-10-13] MEDS ORDERED: BISMUTH SUBSALICYLATE 524 MG/30 ML PO PRN (13:52)
[2021-10-13] MEDS ORDERED: IBUPROFEN 400 MG TABLET (FP) PO PRN (13:52)
[2021-10-13] MEDS: chlordiazePOXIDE HCL 25 MG CAPSULE PO SCH ×2 (16:44→22:55)
[2021-10-13] MEDS: hydrOXYzine PAMOATE 25 MG CAPSULE (FP) PO SCH ×3 (16:44→22:56)
[2021-10-13 18:58] LABS: EPI CELLS 3 /uL (0-25.1); HYALINE CASTS 2 /uL (0-3.1); PH,URINE 5.5 (5.0-8.0); URINE APPEARANCE CLEAR; URINE BACTERIA 6 /uL (0-1359); URINE BILIRUBIN NEGATIVE (NEGATIVE); URINE COLOR YELLOW; URINE GLUCOSE (UA) NEGATIVE (NEGATIVE); URINE KETONE NEGATIVE (NEGATIVE); URINE LEUK ESTERASE TRACE (NEGATIVE); URINE NITRITE NEGATIVE (NEGATIVE); URINE PROTEIN NEGATIVE (NEGATIVE); URINE RBC 4 /uL (0-23.9); URINE UROBILINOGEN 0.2 mg/dL (0.2-1.0); URINE WBC 9 /uL (0-25.8)
[2021-10-13] MEDS: THIAMINE HCL 100 MG TABLET (FP) PO SCH (22:56)
[2021-10-13] MEDS: MELATONIN 5 MG TABLETS PO SCH (22:56)
[2021-10-14] MEDS: chlordiazePOXIDE HCL 25 MG CAPSULE PO SCH ×4 (05:49→22:25)
[2021-10-14] MEDS: hydrOXYzine PAMOATE 25 MG CAPSULE (FP) PO SCH ×5 (05:50→22:25)
[2021-10-14] MEDS: PRENATAL VITAMINS W/ FOLIC ACID TABLET (FP) PO SCH (10:24)
[2021-10-14 11:19] LABS: HEMATOCRIT 40.2 % (35.4-49); HEMOGLOBIN 13.6 GM/dL (11.7-16.9); MCH 31.5 pg (25.7-33.7); MCHC 33.7 g/dl (32.0-35.9); MEAN CELL VOLUME 93.6 fl (80-96); MEAN PLT VOLUME 8.4 fl (7.5-11.1); PLATELET COUNT 201 10^3/uL (134-434); RDW 13.5 % (11.9-15.9); WHITE BLOOD COUNT 6.6 K/mm3 (4.0-10.0)
[2021-10-14 12:14] LABS: CALCIUM 8.6 mg/dL (8.5-10.1)
[2021-10-14 12:15] LABS: ALBUMIN 3.5 g/dl (3.4-5.0)
[2021-10-14 12:18] LABS: CREATININE 0.6 mg/dL (0.55-1.3)
[2021-10-14 12:19] LABS: BILIRUBIN,TOTAL 0.8 mg/dL (0.2-1); TOT PROT 6.4 g/dl (6.4-8.2)
[2021-10-14] MEDS: THIAMINE HCL 100 MG TABLET (FP) PO SCH (22:25)
[2021-10-14] MEDS: MELATONIN 5 MG TABLETS PO SCH (22:25)
[2021-10-15] MEDS: chlordiazePOXIDE HCL 25 MG CAPSULE PO SCH ×4 (05:51→22:15)
[2021-10-15] MEDS: hydrOXYzine PAMOATE 25 MG CAPSULE (FP) PO SCH ×5 (05:51→22:15)
[2021-10-15] MEDS: PRENATAL VITAMINS W/ FOLIC ACID TABLET (FP) PO SCH (10:48)
[2021-10-15] MEDS: THIAMINE HCL 100 MG TABLET (FP) PO SCH (22:15)
[2021-10-15] MEDS: MELATONIN 5 MG TABLETS PO SCH (22:15)
[2021-10-16] MEDS ORDERED: chlordiazePOXIDE HCL 10 MG CAPSULE PO PRN
[2021-10-16] MEDS: hydrOXYzine PAMOATE 25 MG CAPSULE (FP) PO SCH ×5 (06:07→22:18)
[2021-10-16] MEDS: chlordiazePOXIDE HCL 10 MG CAPSULE PO SCH ×4 (06:07→22:19)
[2021-10-16] MEDS: PRENATAL VITAMINS W/ FOLIC ACID TABLET (FP) PO SCH (10:11)
[2021-10-16] MEDS: MELATONIN 5 MG TABLETS PO SCH (22:18)
[2021-10-16] MEDS: THIAMINE HCL 100 MG TABLET (FP) PO SCH (22:19)
[2021-10-17] MEDS: chlordiazePOXIDE HCL 10 MG CAPSULE PO SCH ×2 (05:37→17:42)
[2021-10-17] MEDS: hydrOXYzine PAMOATE 25 MG CAPSULE (FP) PO SCH ×5 (05:37→22:59)
[2021-10-17] MEDS: PRENATAL VITAMINS W/ FOLIC ACID TABLET (FP) PO SCH (10:42)
[2021-10-17] MEDS: THIAMINE HCL 100 MG TABLET (FP) PO SCH (22:14)
[2021-10-17] MEDS: MELATONIN 5 MG TABLETS PO SCH (22:14)
[2021-10-18] MEDS ORDERED: chlordiazePOXIDE HCL 10 MG CAPSULE PO ONE (05:00)
[2021-10-18] MEDS: hydrOXYzine PAMOATE 25 MG CAPSULE (FP) PO SCH (05:48)
[2021-10-18 07:13] VITALS: BP 108/72; PULSE 70; TEMP 97.8
== END 2021-10-18 06:57 | disposition home or self-care (01) | DRG 773 ==
LOC: YASAS 12:02 → Y3N 15:50
PROVIDERS: ADMIT Allergy & Immunology; ATTEND Surgery
PROC: HZ2ZZZZ Detoxification Services for Substance Abuse Treatment (ICD-10-PCS; principal; 2021-10-13)
DX: F10.230 Alcohol dependence with withdrawal, uncomplicated (principal); F11.20 Opioid dependence, uncomplicated; F10.24 Alcohol dependence with alcohol-induced mood disorder; F32.A Depression, unspecified; R63.4 Abnormal weight loss; Z68.26 Body mass index [BMI] 26.0-26.9, adult; Z51.81 Encounter for therapeutic drug level monitoring
CPT/HCPCS: 36415; 80053; 81003; 85027; 86780; C9803-CS; U0003; U0005

== ENCOUNTER 2022-01-28 12:05 | Inpatient (IN) | payer OTHER ==
[2022-01-28 14:02] VITALS: BMI 24.3
[2022-01-28] MEDS ORDERED: MAG HYDROX/AL HYDROX/SIMETH 30 ML UNIT-DOSE CUP PO PRN (15:44)
[2022-01-28] MEDS ORDERED: MAGNESIUM HYDROX 2400MG/30ML ORAL SUSPENSION 30 ML CUP PO PRN (15:44)
[2022-01-28] MEDS ORDERED: ACETAMINOPHEN 325 MG TABLET (FP) PO PRN ×2 (15:44)
[2022-01-28] MEDS ORDERED: DICYCLOMINE HCL 10 MG CAPSULE PO PRN (15:44)
[2022-01-28] MEDS ORDERED: NALOXONE HCL (KLOXXADO) 8 MG SPRAY NS PRN (15:44)
[2022-01-28] MEDS ORDERED: IBUPROFEN 400 MG TABLET (FP) PO PRN (15:44)
[2022-01-28] MEDS ORDERED: LOPERAMIDE HCL 2 MG CAPSULE PO PRN (15:44)
[2022-01-28] MEDS ORDERED: MAGNESIUM CITRATE 300 ML BOTTLE PO PRN (15:44)
[2022-01-28] MEDS ORDERED: BISMUTH SUBSALICYLATE 524 MG/30 ML PO PRN (15:44)
[2022-01-28] MEDS ORDERED: ONDANSETRON *ODT* 4 MG TABLET SL PRN (15:44)
[2022-01-28] MEDS ORDERED: BENZOCAINE/MENTHOL (CHLORASEPTIC ) LOZENGE MM PRN (15:44)
[2022-01-28] MEDS: IBUPROFEN 600 MG TABLET (FP) PO PRN (16:10)
[2022-01-28] MEDS ORDERED: IBUPROFEN 600 MG TABLET (FP) PO ONE (16:15)
[2022-01-28] MEDS: chlordiazePOXIDE HCL 25 MG CAPSULE PO SCH ×2 (16:51→22:49)
[2022-01-28] MEDS: PRENATAL VITAMINS W/ FOLIC ACID TABLET (FP) PO SCH (16:55)
[2022-01-28] MEDS: THIAMINE HCL 100 MG TABLET (FP) PO SCH (22:49)
[2022-01-28] MEDS: MELATONIN 5 MG TABLETS PO SCH (22:51)
[2022-01-28] MEDS: METHOCARBAMOL 500 MG TABLET PO PRN (22:53)
[2022-01-29] MEDS: chlordiazePOXIDE HCL 25 MG CAPSULE PO SCH ×4 (05:12→22:23)
[2022-01-29] MEDS: METHOCARBAMOL 500 MG TABLET PO PRN ×3 (05:13→22:26)
[2022-01-29] MEDS: PRENATAL VITAMINS W/ FOLIC ACID TABLET (FP) PO SCH (10:17)
[2022-01-29] MEDS: IBUPROFEN 600 MG TABLET (FP) PO PRN (10:24)
[2022-01-29] MEDS: BACITRACIN 15 GM TUBE TOPICAL OINTMENT TP SCH ×2 (10:59→22:27)
[2022-01-29 12:57] LABS: HEMATOCRIT 41.4 % (35.4-49); HEMOGLOBIN 14.2 GM/dL (11.7-16.9); MCH 32.2 pg (25.7-33.7); MCHC 34.2 g/dl (32.0-35.9); MEAN CELL VOLUME 94.2 fl (80-96); MEAN PLT VOLUME 8.3 fl (7.5-11.1); PLATELET COUNT 276 10^3/uL (134-434); RBC 4.39 M/mm3 (4.00-5.60); RDW 13.8 % (11.9-15.9); WHITE BLOOD COUNT 5.4 K/mm3 (4.0-10.0)
[2022-01-29 13:06] LABS: CALCIUM 9.2 mg/dL (8.5-10.1)
[2022-01-29 13:07] LABS: ALBUMIN 3.7 g/dl (3.4-5.0)
[2022-01-29 13:10] LABS: CREATININE 0.6 mg/dL (0.55-1.3)
[2022-01-29 13:11] LABS: BILIRUBIN,TOTAL 0.9 mg/dL (0.2-1)
[2022-01-29] MEDS: THIAMINE HCL 100 MG TABLET (FP) PO SCH (22:23)
[2022-01-29] MEDS: MELATONIN 5 MG TABLETS PO SCH (22:24)
[2022-01-30] MEDS: chlordiazePOXIDE HCL 25 MG CAPSULE PO SCH ×4 (05:19→22:05)
[2022-01-30] MEDS: METHOCARBAMOL 500 MG TABLET PO PRN (05:21)
[2022-01-30] MEDS: BACITRACIN 15 GM TUBE TOPICAL OINTMENT TP SCH ×2 (10:08→22:02)
[2022-01-30] MEDS: PRENATAL VITAMINS W/ FOLIC ACID TABLET (FP) PO SCH (10:09)
[2022-01-30] MEDS: IBUPROFEN 600 MG TABLET (FP) PO PRN (10:10)
[2022-01-30] MEDS: THIAMINE HCL 100 MG TABLET (FP) PO SCH (22:02)
[2022-01-30] MEDS: MELATONIN 5 MG TABLETS PO SCH (22:37)
[2022-01-31] MEDS ORDERED: chlordiazePOXIDE HCL 10 MG CAPSULE PO SCH (05:00)
[2022-01-31 06:02] VITALS: TEMP 97.1
[2022-01-31 09:03] VITALS: BP 115/98; PULSE 84; RESP 18
[2022-02-01] MEDS ORDERED: chlordiazePOXIDE HCL 10 MG CAPSULE PO SCH (05:00)
[2022-02-02] MEDS ORDERED: chlordiazePOXIDE HCL 10 MG CAPSULE PO ONE (05:00)
== END 2022-01-31 09:55 | disposition home or self-care (01) | DRG 774 ==
LOC: YASAS 12:05 → Y6N 16:22
PROVIDERS: ADMIT Allergy & Immunology; ATTEND Surgery
PROC: HZ2ZZZZ Detoxification Services for Substance Abuse Treatment (ICD-10-PCS; principal; 2022-01-28)
DX: F10.230 Alcohol dependence with withdrawal, uncomplicated (principal); F14.20 Cocaine dependence, uncomplicated; F12.20 Cannabis dependence, uncomplicated; F19.282 Other psychoactive substance dependence with psychoactive substance-induced sleep disorder; F19.280 Other psychoactive substance dependence with psychoactive substance-induced anxiety disorder; F41.9 Anxiety disorder, unspecified; M54.50 Low back pain, unspecified; G89.29 Other chronic pain
CPT/HCPCS: 36415; 80053; 85027; 86780; C9803-CS; U0003; U0005

== ENCOUNTER 2022-04-23 12:17 | Inpatient (IN) | payer OTHER ==
[2022-04-23 13:11] VITALS: BMI 24.2
[2022-04-23] MEDS ORDERED: IBUPROFEN 400 MG TABLET (FP) PO PRN (13:49)
[2022-04-23] MEDS ORDERED: MAG HYDROX/AL HYDROX/SIMETH 30 ML UNIT-DOSE CUP PO PRN (13:49)
[2022-04-23] MEDS ORDERED: NALOXONE HCL (KLOXXADO) 8 MG SPRAY NS PRN (13:49)
[2022-04-23] MEDS ORDERED: ACETAMINOPHEN 325 MG TABLET (FP) PO PRN ×2 (13:49)
[2022-04-23] MEDS ORDERED: ONDANSETRON *ODT* 4 MG TABLET SL PRN (13:49)
[2022-04-23] MEDS ORDERED: POLYETHYLENE GLYCOL (HEALTHYLAX) 3350 17 GM PACKET PO PRN (13:49)
[2022-04-23] MEDS ORDERED: IBUPROFEN 600 MG TABLET (FP) PO PRN (13:49)
[2022-04-23] MEDS ORDERED: BISMUTH SUBSALICYLATE 262 MG/15 ML BTL PO PRN (13:49)
[2022-04-23] MEDS ORDERED: DICYCLOMINE HCL 10 MG CAPSULE PO PRN (13:49)
[2022-04-23] MEDS ORDERED: BENZOCAINE/MENTHOL (CHLORASEPTIC ) LOZENGE MM PRN (13:49)
[2022-04-23] MEDS ORDERED: NICOTINE 10 MG CARTRIDGE (INHALER) IH PRN (13:49)
[2022-04-23] MEDS ORDERED: LOPERAMIDE HCL 2 MG CAPSULE PO PRN (13:49)
[2022-04-23] MEDS ORDERED: MAGNESIUM HYDROX 2400MG/30ML ORAL SUSPENSION 30 ML CUP PO PRN (13:49)
[2022-04-23] MEDS: PRENATAL VITAMINS W/ FOLIC ACID TABLET (FP) PO SCH (14:58)
[2022-04-23] MEDS: METHOCARBAMOL 500 MG TABLET PO PRN ×2 (15:06→22:05)
[2022-04-23] MEDS: chlordiazePOXIDE HCL 25 MG CAPSULE PO SCH ×2 (17:17→22:04)
[2022-04-23] MEDS: THIAMINE HCL 100 MG TABLET (FP) PO SCH (22:04)
[2022-04-23] MEDS: MELATONIN 5 MG TABLETS PO SCH (22:05)
[2022-04-24] MEDS: chlordiazePOXIDE HCL 25 MG CAPSULE PO SCH ×4 (05:10→22:15)
[2022-04-24] MEDS: PRENATAL VITAMINS W/ FOLIC ACID TABLET (FP) PO SCH (10:12)
[2022-04-24] MEDS: BACITRACIN 0.9 GM PACKET TP PRN ×2 (10:16→17:20)
[2022-04-24 10:59] LABS: HEMATOCRIT 41.9 % (35.4-49); HEMOGLOBIN 14.2 GM/dL (11.7-16.9); MCH 31.4 pg (25.7-33.7); MCHC 33.9 g/dl (32.0-35.9); MEAN CELL VOLUME 92.7 fl (80-96); MEAN PLT VOLUME 7.9 fl (7.5-11.1); PLATELET COUNT 290 10^3/uL (134-434); RBC 4.52 M/mm3 (4.00-5.60); RDW 13.1 % (11.9-15.9)
[2022-04-24 11:22] LABS: BLOOD UREA NITROGEN 13.7 mg/dL (7-18); CALCIUM 8.8 mg/dL (8.5-10.1)
[2022-04-24 11:23] LABS: ALBUMIN 3.6 g/dl (3.4-5.0)
[2022-04-24 11:25] LABS: CREATININE 0.7 mg/dL (0.55-1.3)
[2022-04-24 11:27] LABS: BILIRUBIN,TOTAL 1.1 mg/dL (0.2-1)
[2022-04-24 12:51] VITALS: RESP 18
[2022-04-24] MEDS: THIAMINE HCL 100 MG TABLET (FP) PO SCH (22:15)
[2022-04-24] MEDS: MELATONIN 5 MG TABLETS PO SCH (22:17)
[2022-04-25] MEDS ORDERED: chlordiazePOXIDE HCL 25 MG CAPSULE PO SCH (05:00)
[2022-04-25 09:08] VITALS: BP 117/73; PULSE 63; TEMP 97.3
[2022-04-25] MEDS ORDERED: buPROPion HCL 100 MG TABLET PO SCH (10:00)
[2022-04-26] MEDS ORDERED: chlordiazePOXIDE HCL 10 MG CAPSULE PO SCH (05:00)
[2022-04-27] MEDS ORDERED: chlordiazePOXIDE HCL 10 MG CAPSULE PO SCH (05:00)
[2022-04-28] MEDS ORDERED: chlordiazePOXIDE HCL 10 MG CAPSULE PO ONE (05:00)
== END 2022-04-25 09:28 | disposition left against medical advice (07) | DRG 770 ==
LOC: YASAS 12:17 → Y3N 14:27
PROVIDERS: ADMIT Allergy & Immunology; ATTEND Family Medicine
PROC: HZ2ZZZZ Detoxification Services for Substance Abuse Treatment (ICD-10-PCS; principal; 2022-04-23)
DX: F10.230 Alcohol dependence with withdrawal, uncomplicated (principal); F32.A Depression, unspecified
CPT/HCPCS: 36415; 80053; 85027; 86780; C9803-CS; U0003; U0005

== ENCOUNTER 2022-06-18 17:31 | Inpatient (IN) | payer OTHER ==
[2022-06-18 18:05] VITALS: BMI 26.6
[2022-06-18] MEDS ORDERED: NICOTINE 10 MG CARTRIDGE (INHALER) IH PRN (18:50)
[2022-06-18] MEDS ORDERED: guaiFENesin 600 MG TABLET.ER (FP) PO PRN (18:50)
[2022-06-18] MEDS ORDERED: POLYETHYLENE GLYCOL (HEALTHYLAX) 3350 17 GM PACKET PO PRN (18:50)
[2022-06-18] MEDS ORDERED: ONDANSETRON *ODT* 4 MG TABLET SL PRN (18:50)
[2022-06-18] MEDS ORDERED: IBUPROFEN 600 MG TABLET (FP) PO PRN (18:50)
[2022-06-18] MEDS ORDERED: IBUPROFEN 400 MG TABLET (FP) PO PRN (18:50)
[2022-06-18] MEDS ORDERED: NALOXONE HCL 0.4 MG/ML VIAL IM PRN (18:50)
[2022-06-18] MEDS ORDERED: LOPERAMIDE HCL 2 MG CAPSULE PO PRN (18:50)
[2022-06-18] MEDS ORDERED: MAG HYDROX/AL HYDROX/SIMETH 30 ML UNIT-DOSE CUP PO PRN (18:50)
[2022-06-18] MEDS ORDERED: DICYCLOMINE HCL 10 MG CAPSULE PO PRN (18:50)
[2022-06-18] MEDS ORDERED: MAGNESIUM HYDROX 2400MG/30ML ORAL SUSPENSION 30 ML CUP PO PRN (18:50)
[2022-06-18] MEDS ORDERED: BENZOCAINE/MENTHOL (CHLORASEPTIC ) LOZENGE MM PRN (18:50)
[2022-06-18] MEDS ORDERED: ACETAMINOPHEN 325 MG TABLET (FP) PO PRN (18:50)
[2022-06-18] MEDS ORDERED: BENZONATATE 200 MG CAPSULE PO PRN (18:50)
[2022-06-18] MEDS ORDERED: BISMUTH SUBSALICYLATE 524 MG/30 ML PO PRN (18:50)
[2022-06-18] MEDS ORDERED: NALOXONE HCL (KLOXXADO) 8 MG SPRAY NS PRN (18:50)
[2022-06-18] MEDS ORDERED: METHOCARBAMOL 500 MG TABLET PO PRN (18:50)
[2022-06-18] MEDS ORDERED: chlordiazePOXIDE HCL 25 MG CAPSULE PO ONE (18:50)
[2022-06-18] MEDS ORDERED: chlordiazePOXIDE HCL 25 MG CAPSULE ONE (19:34)
[2022-06-18] MEDS: MELATONIN 5 MG TABLETS PO SCH (22:24)
[2022-06-18] MEDS: THIAMINE HCL 100 MG TABLET (FP) PO SCH (22:24)
[2022-06-18] MEDS: chlordiazePOXIDE HCL 25 MG CAPSULE PO SCH (22:24)
[2022-06-19] MEDS: chlordiazePOXIDE HCL 25 MG CAPSULE PO SCH ×4 (05:20→22:08)
[2022-06-19] MEDS ORDERED: PRENATAL VITAMINS W/ FOLIC ACID TABLET (FP) PO SCH (10:00)
[2022-06-19 12:19] LABS: HEMATOCRIT 39.8 % (35.4-49); HEMOGLOBIN 13.8 GM/dL (11.7-16.9); MCH 31.6 pg (25.7-33.7); MCHC 34.6 g/dl (32.0-35.9); MEAN CELL VOLUME 91.3 fl (80-96); MEAN PLT VOLUME 7.9 fl (7.5-11.1); PLATELET COUNT 285 10^3/uL (134-434); RBC 4.36 M/mm3 (4.00-5.60); RDW 13.9 % (11.9-15.9); WHITE BLOOD COUNT 5.7 K/mm3 (4.0-10.0)
[2022-06-19 12:22] LABS: ALBUMIN 3.5 g/dl (3.4-5.0)
[2022-06-19 12:23] LABS: BLOOD UREA NITROGEN 13.1 mg/dL (7-18); CALCIUM 8.5 mg/dL (8.5-10.1)
[2022-06-19 12:24] LABS: BILIRUBIN,TOTAL 0.7 mg/dL (0.2-1); TOT PROT 6.7 g/dl (6.4-8.2)
[2022-06-19 12:25] LABS: CREATININE 0.7 mg/dL (0.55-1.3)
[2022-06-19] MEDS: MELATONIN 5 MG TABLETS PO SCH (22:08)
[2022-06-19] MEDS: THIAMINE HCL 100 MG TABLET (FP) PO SCH (22:08)
[2022-06-20] MEDS ORDERED: chlordiazePOXIDE HCL 25 MG CAPSULE PO SCH (05:00)
[2022-06-20 09:48] VITALS: BP 137/84; PULSE 89; RESP 18; TEMP 97.5
[2022-06-21] MEDS ORDERED: chlordiazePOXIDE HCL 10 MG CAPSULE PO SCH (05:00)
[2022-06-22] MEDS ORDERED: chlordiazePOXIDE HCL 10 MG CAPSULE PO SCH (05:00)
[2022-06-23] MEDS ORDERED: chlordiazePOXIDE HCL 10 MG CAPSULE PO ONE (05:00)
== END 2022-06-20 09:30 | disposition left against medical advice (07) | DRG 770 ==
LOC: YASAS 17:31 → Y3N 18:51
PROVIDERS: ADMIT Allergy & Immunology; ATTEND Surgery
PROC: HZ2ZZZZ Detoxification Services for Substance Abuse Treatment (ICD-10-PCS; principal; 2022-06-18)
DX: F10.230 Alcohol dependence with withdrawal, uncomplicated (principal); F14.20 Cocaine dependence, uncomplicated; F12.20 Cannabis dependence, uncomplicated; F41.9 Anxiety disorder, unspecified; F32.A Depression, unspecified; M54.50 Low back pain, unspecified; Z86.59 Personal history of other mental and behavioral disorders
CPT/HCPCS: 36415; 80053; 85027; 86780; C9803-CS; U0003; U0005

== ENCOUNTER 2022-08-02 18:28 | Inpatient (IN) | payer OTHER ==
[2022-08-02 19:21] VITALS: BMI 26.2
[2022-08-02] MEDS ORDERED: chlordiazePOXIDE HCL 25 MG CAPSULE PO ONE (20:25)
[2022-08-02] MEDS ORDERED: LOPERAMIDE HCL 2 MG CAPSULE PO PRN (20:36)
[2022-08-02] MEDS ORDERED: IBUPROFEN 400 MG TABLET (FP) PO PRN (20:36)
[2022-08-02] MEDS ORDERED: ONDANSETRON *ODT* 4 MG TABLET SL PRN (20:36)
[2022-08-02] MEDS ORDERED: DICYCLOMINE HCL 10 MG CAPSULE PO PRN (20:36)
[2022-08-02] MEDS ORDERED: POLYETHYLENE GLYCOL (HEALTHYLAX) 3350 17 GM PACKET PO PRN (20:36)
[2022-08-02] MEDS ORDERED: BENZONATATE 200 MG CAPSULE PO PRN (20:36)
[2022-08-02] MEDS ORDERED: BISMUTH SUBSALICYLATE 524 MG/30 ML PO PRN (20:36)
[2022-08-02] MEDS ORDERED: IBUPROFEN 600 MG TABLET (FP) PO PRN (20:36)
[2022-08-02] MEDS ORDERED: P-EPHED 60MG/TRIPROLIDI 2.5MG TABLET PO PRN (20:36)
[2022-08-02] MEDS ORDERED: MAG HYDROX/AL HYDROX/SIMETH 30 ML UNIT-DOSE CUP PO PRN (20:36)
[2022-08-02] MEDS ORDERED: guaiFENesin 600 MG TABLET.ER (FP) PO PRN (20:36)
[2022-08-02] MEDS ORDERED: MAGNESIUM HYDROX 2400MG/30ML ORAL SUSPENSION 30 ML CUP PO PRN (20:36)
[2022-08-02] MEDS ORDERED: BENZOCAINE/MENTHOL (CHLORASEPTIC ) LOZENGE MM PRN (20:36)
[2022-08-02] MEDS ORDERED: ACETAMINOPHEN 325 MG TABLET (FP) PO PRN ×2 (20:36)
[2022-08-02] MEDS ORDERED: chlordiazePOXIDE HCL 25 MG CAPSULE ONE (20:47)
[2022-08-02] MEDS: chlordiazePOXIDE HCL 25 MG CAPSULE PO SCH (22:12)
[2022-08-02] MEDS: THIAMINE HCL 100 MG TABLET (FP) PO SCH (22:12)
[2022-08-02] MEDS: MELATONIN 5 MG TABLETS PO PRN (22:15)
[2022-08-02] MEDS: METHOCARBAMOL 500 MG TABLET PO PRN (22:16)
[2022-08-03] MEDS: chlordiazePOXIDE HCL 25 MG CAPSULE PO PRN (03:49)
[2022-08-03] MEDS: hydrOXYzine PAMOATE 25 MG CAPSULE (FP) PO PRN (03:49)
[2022-08-03] MEDS: chlordiazePOXIDE HCL 25 MG CAPSULE PO SCH ×4 (05:43→22:23)
[2022-08-03] MEDS: PRENATAL VITAMINS W/ FOLIC ACID TABLET (FP) PO SCH (10:30)
[2022-08-03 10:53] LABS: POTASSIUM 3.7 mmol/L (3.5-5.1)
[2022-08-03 10:57] LABS: CALCIUM 8.3 mg/dL (8.5-10.1)
[2022-08-03 10:58] LABS: ALBUMIN 3.4 g/dl (3.4-5.0); BLOOD UREA NITROGEN 16.2 mg/dL (7-18)
[2022-08-03 11:01] LABS: CREATININE 0.7 mg/dL (0.55-1.3); HEMATOCRIT 38.1 % (35.4-49); HEMOGLOBIN 13.5 GM/dL (11.7-16.9); MCH 32.2 pg (25.7-33.7); MCHC 35.3 g/dl (32.0-35.9); MEAN PLT VOLUME 8.7 fl (7.5-11.1); PLATELET COUNT 219 10^3/uL (134-434); RBC 4.19 M/mm3 (4.00-5.60); RDW 13.8 % (11.9-15.9); WHITE BLOOD COUNT 6.3 K/mm3 (4.0-10.0)
[2022-08-03 11:02] LABS: BILIRUBIN,TOTAL 0.7 mg/dL (0.2-1); TOT PROT 6.5 g/dl (6.4-8.2)
[2022-08-03] MEDS: BACITRACIN 0.9 GM PACKET TP SCH (16:17)
[2022-08-03] MEDS: MELATONIN 5 MG TABLETS PO PRN (22:23)
[2022-08-03] MEDS: THIAMINE HCL 100 MG TABLET (FP) PO SCH (22:23)
[2022-08-03] MEDS: METHOCARBAMOL 500 MG TABLET PO PRN (22:25)
[2022-08-04] MEDS: chlordiazePOXIDE HCL 25 MG CAPSULE PO PRN (02:06)
[2022-08-04] MEDS: hydrOXYzine PAMOATE 25 MG CAPSULE (FP) PO PRN (02:06)
[2022-08-04] MEDS: chlordiazePOXIDE HCL 25 MG CAPSULE PO SCH ×4 (05:41→22:16)
[2022-08-04] MEDS: PRENATAL VITAMINS W/ FOLIC ACID TABLET (FP) PO SCH (10:17)
[2022-08-04] MEDS: BACITRACIN 0.9 GM PACKET TP SCH (10:17)
[2022-08-04] MEDS: THIAMINE HCL 100 MG TABLET (FP) PO SCH (22:15)
[2022-08-05] MEDS ORDERED: chlordiazePOXIDE HCL 10 MG CAPSULE PO PRN
[2022-08-05] MEDS: chlordiazePOXIDE HCL 10 MG CAPSULE PO SCH ×4 (05:47→22:14)
[2022-08-05] MEDS: BACITRACIN 0.9 GM PACKET TP SCH (10:18)
[2022-08-05] MEDS: PRENATAL VITAMINS W/ FOLIC ACID TABLET (FP) PO SCH (10:19)
[2022-08-05] MEDS: THIAMINE HCL 100 MG TABLET (FP) PO SCH (22:12)
[2022-08-05] MEDS: METHOCARBAMOL 500 MG TABLET PO PRN (22:13)
[2022-08-06] MEDS: chlordiazePOXIDE HCL 10 MG CAPSULE PO SCH ×2 (05:28→17:35)
[2022-08-06] MEDS: METHOCARBAMOL 500 MG TABLET PO PRN ×2 (05:46→22:06)
[2022-08-06] MEDS: BACITRACIN 0.9 GM PACKET TP SCH (10:07)
[2022-08-06] MEDS: PRENATAL VITAMINS W/ FOLIC ACID TABLET (FP) PO SCH (10:08)
[2022-08-06] MEDS: MELATONIN 5 MG TABLETS PO PRN (22:06)
[2022-08-06] MEDS: THIAMINE HCL 100 MG TABLET (FP) PO SCH (22:06)
[2022-08-07] MEDS ORDERED: chlordiazePOXIDE HCL 10 MG CAPSULE PO ONE (05:00)
[2022-08-07] MEDS: METHOCARBAMOL 500 MG TABLET PO PRN (05:31)
[2022-08-07 06:07] VITALS: RESP 18
[2022-08-07 08:50] VITALS: BP 138/79; PULSE 100; TEMP 97.7
== END 2022-08-07 09:36 | disposition home or self-care (01) | DRG 775 ==
LOC: YASAS 18:28 → Y3N 20:56
PROVIDERS: ADMIT Allergy & Immunology; ATTEND Surgery
PROC: HZ2ZZZZ Detoxification Services for Substance Abuse Treatment (ICD-10-PCS; principal; 2022-08-02)
DX: F10.230 Alcohol dependence with withdrawal, uncomplicated (principal); F10.220 Alcohol dependence with intoxication, uncomplicated; M54.50 Low back pain, unspecified; G89.29 Other chronic pain
CPT/HCPCS: 36415; 80053; 85027; 86780; C9803-CS; U0003; U0005

== ENCOUNTER 2022-08-27 20:11 | Inpatient (IN) | payer OTHER ==
[2022-08-27 20:35] VITALS: BMI 25.7
[2022-08-27] MEDS ORDERED: chlordiazePOXIDE HCL 25 MG CAPSULE PO ONE (21:07)
[2022-08-27] MEDS ORDERED: BENZOCAINE/MENTHOL (CHLORASEPTIC ) LOZENGE MM PRN (21:40)
[2022-08-27] MEDS ORDERED: MAG HYDROX/AL HYDROX/SIMETH 30 ML UNIT-DOSE CUP PO PRN (21:40)
[2022-08-27] MEDS ORDERED: ONDANSETRON *ODT* 4 MG TABLET SL PRN (21:40)
[2022-08-27] MEDS ORDERED: DICYCLOMINE HCL 10 MG CAPSULE PO PRN (21:40)
[2022-08-27] MEDS ORDERED: IBUPROFEN 400 MG TABLET (FP) PO PRN (21:40)
[2022-08-27] MEDS ORDERED: BISMUTH SUBSALICYLATE 524 MG/30 ML PO PRN (21:40)
[2022-08-27] MEDS ORDERED: hydrOXYzine PAMOATE 25 MG CAPSULE (FP) PO PRN (21:40)
[2022-08-27] MEDS ORDERED: LOPERAMIDE HCL 2 MG CAPSULE PO PRN (21:40)
[2022-08-27] MEDS ORDERED: guaiFENesin 600 MG TABLET.ER (FP) PO PRN (21:40)
[2022-08-27] MEDS ORDERED: BENZONATATE 200 MG CAPSULE PO PRN (21:40)
[2022-08-27] MEDS ORDERED: ACETAMINOPHEN 325 MG TABLET (FP) PO PRN (21:40)
[2022-08-27] MEDS ORDERED: IBUPROFEN 600 MG TABLET (FP) PO PRN (21:40)
[2022-08-27] MEDS ORDERED: NALOXONE HCL 0.4 MG/ML VIAL IM PRN (21:40)
[2022-08-27] MEDS ORDERED: POLYETHYLENE GLYCOL (HEALTHYLAX) 3350 17 GM PACKET PO PRN (21:40)
[2022-08-27] MEDS ORDERED: P-EPHED 60MG/TRIPROLIDI 2.5MG TABLET PO PRN (21:40)
[2022-08-27] MEDS ORDERED: NALOXONE HCL (KLOXXADO) 8 MG SPRAY NS PRN (21:40)
[2022-08-27] MEDS ORDERED: chlordiazePOXIDE HCL 25 MG CAPSULE PO PRN (21:43)
[2022-08-27] MEDS ORDERED: chlordiazePOXIDE HCL 25 MG CAPSULE ONE (21:49)
[2022-08-27] MEDS: MELATONIN 5 MG TABLETS PO SCH (22:59)
[2022-08-27] MEDS: MAGNESIUM HYDROX 2400MG/30ML ORAL SUSPENSION 30 ML CUP PO PRN (23:01)
[2022-08-27] MEDS: THIAMINE HCL 100 MG TABLET (FP) PO SCH (23:02)
[2022-08-27] MEDS: chlordiazePOXIDE HCL 25 MG CAPSULE PO SCH (23:30)
[2022-08-28] MEDS: chlordiazePOXIDE HCL 25 MG CAPSULE PO SCH ×4 (05:42→22:03)
[2022-08-28] MEDS: METHOCARBAMOL 500 MG TABLET PO PRN ×2 (05:45→12:29)
[2022-08-28] MEDS: PRENATAL VITAMINS W/ FOLIC ACID TABLET (FP) PO SCH (10:15)
[2022-08-28] MEDS: MAGNESIUM HYDROX 2400MG/30ML ORAL SUSPENSION 30 ML CUP PO PRN (10:18)
[2022-08-28 11:34] LABS: HEMATOCRIT 39.8 % (35.4-49); HEMOGLOBIN 13.5 GM/dL (11.7-16.9); MCH 31.2 pg (25.7-33.7); MEAN CELL VOLUME 91.9 fl (80-96); MEAN PLT VOLUME 8.5 fl (7.5-11.1); PLATELET COUNT 199 10^3/uL (134-434); RBC 4.33 M/mm3 (4.00-5.60); RDW 14.2 % (11.9-15.9); WHITE BLOOD COUNT 8.1 K/mm3 (4.0-10.0)
[2022-08-28 11:52] LABS: POTASSIUM 3.7 mmol/L (3.5-5.1)
[2022-08-28 11:54] LABS: ALBUMIN 3.5 g/dl (3.4-5.0); BLOOD UREA NITROGEN 10.3 mg/dL (7-18); CALCIUM 8.5 mg/dL (8.5-10.1)
[2022-08-28 11:57] LABS: CREATININE 0.6 mg/dL (0.55-1.3)
[2022-08-28 12:00] LABS: BILIRUBIN,TOTAL 0.8 mg/dL (0.2-1); TOT PROT 6.8 g/dl (6.4-8.2)
[2022-08-28] MEDS: THIAMINE HCL 100 MG TABLET (FP) PO SCH (22:03)
[2022-08-28] MEDS: MELATONIN 5 MG TABLETS PO SCH (22:03)
[2022-08-29] MEDS: chlordiazePOXIDE HCL 25 MG CAPSULE PO SCH ×4 (05:45→22:23)
[2022-08-29] MEDS: METHOCARBAMOL 500 MG TABLET PO PRN (05:48)
[2022-08-29] MEDS: PRENATAL VITAMINS W/ FOLIC ACID TABLET (FP) PO SCH (10:16)
[2022-08-29] MEDS: THIAMINE HCL 100 MG TABLET (FP) PO SCH (22:22)
[2022-08-29] MEDS: MELATONIN 5 MG TABLETS PO SCH (22:24)
[2022-08-30] MEDS ORDERED: chlordiazePOXIDE HCL 10 MG CAPSULE PO PRN
[2022-08-30] MEDS: chlordiazePOXIDE HCL 10 MG CAPSULE PO SCH ×2 (05:41→10:20)
[2022-08-30] MEDS: PRENATAL VITAMINS W/ FOLIC ACID TABLET (FP) PO SCH (10:20)
[2022-08-30 11:18] VITALS: BP 143/80; PULSE 90; RESP 16; TEMP 97.5
[2022-08-31] MEDS ORDERED: chlordiazePOXIDE HCL 10 MG CAPSULE PO SCH (05:00)
[2022-09-01] MEDS ORDERED: chlordiazePOXIDE HCL 10 MG CAPSULE PO ONE (05:00)
== END 2022-08-30 09:28 | disposition home or self-care (01) | DRG 774 ==
LOC: YASAS 20:11 → Y6N 22:03
PROVIDERS: ADMIT Allergy & Immunology; ATTEND Surgery
PROC: HZ2ZZZZ Detoxification Services for Substance Abuse Treatment (ICD-10-PCS; principal; 2022-08-27)
DX: F10.230 Alcohol dependence with withdrawal, uncomplicated (principal); F14.20 Cocaine dependence, uncomplicated; F10.280 Alcohol dependence with alcohol-induced anxiety disorder; F10.282 Alcohol dependence with alcohol-induced sleep disorder; F32.A Depression, unspecified
CPT/HCPCS: 36415; 80053; 85027; 86780; C9803-CS; Q0162; U0003; U0005

== ENCOUNTER 2022-09-19 15:39 | Inpatient (IN) | payer OTHER ==
[2022-09-19 17:08] VITALS: BMI 25.1
[2022-09-19] MEDS ORDERED: NALOXONE HCL (KLOXXADO) 8 MG SPRAY NS PRN (21:12)
[2022-09-19] MEDS ORDERED: MAGNESIUM HYDROX 2400MG/30ML ORAL SUSPENSION 30 ML CUP PO PRN (21:12)
[2022-09-19] MEDS ORDERED: BENZOCAINE/MENTHOL (CHLORASEPTIC ) LOZENGE MM PRN (21:12)
[2022-09-19] MEDS ORDERED: ONDANSETRON *ODT* 4 MG TABLET SL PRN (21:12)
[2022-09-19] MEDS ORDERED: ACETAMINOPHEN 325 MG TABLET (FP) PO PRN (21:12)
[2022-09-19] MEDS ORDERED: POLYETHYLENE GLYCOL (HEALTHYLAX) 3350 17 GM PACKET PO PRN (21:12)
[2022-09-19] MEDS ORDERED: BENZONATATE 200 MG CAPSULE PO PRN (21:12)
[2022-09-19] MEDS ORDERED: chlordiazePOXIDE HCL 25 MG CAPSULE PO PRN (21:12)
[2022-09-19] MEDS ORDERED: IBUPROFEN 400 MG TABLET (FP) PO PRN (21:12)
[2022-09-19] MEDS ORDERED: DICYCLOMINE HCL 10 MG CAPSULE PO PRN (21:12)
[2022-09-19] MEDS ORDERED: LOPERAMIDE HCL 2 MG CAPSULE PO PRN (21:12)
[2022-09-19] MEDS ORDERED: guaiFENesin 600 MG TABLET.ER (FP) PO PRN (21:12)
[2022-09-19] MEDS ORDERED: IBUPROFEN 600 MG TABLET (FP) PO PRN (21:12)
[2022-09-19] MEDS ORDERED: NALOXONE HCL 0.4 MG/ML VIAL IM PRN (21:12)
[2022-09-19] MEDS ORDERED: BISMUTH SUBSALICYLATE 524 MG/30 ML PO PRN (21:12)
[2022-09-19] MEDS ORDERED: MAG HYDROX/AL HYDROX/SIMETH 30 ML UNIT-DOSE CUP PO PRN (21:12)
[2022-09-19] MEDS: chlordiazePOXIDE HCL 25 MG CAPSULE PO SCH ×2 (21:37→22:45)
[2022-09-19] MEDS: THIAMINE HCL 100 MG TABLET (FP) PO SCH (22:45)
[2022-09-19] MEDS: MELATONIN 5 MG TABLETS PO SCH (22:45)
[2022-09-19] MEDS: METHOCARBAMOL 500 MG TABLET PO PRN (22:45)
[2022-09-19] MEDS ORDERED: chlordiazePOXIDE HCL 25 MG CAPSULE PO SCH (23:00)
[2022-09-20] MEDS: chlordiazePOXIDE HCL 25 MG CAPSULE PO SCH ×3 (05:48→17:31)
[2022-09-20] MEDS: METHOCARBAMOL 500 MG TABLET PO PRN ×2 (05:50→17:32)
[2022-09-20] MEDS: PRENATAL VITAMINS W/ FOLIC ACID TABLET (FP) PO SCH (10:08)
[2022-09-20 10:57] LABS: POTASSIUM 3.9 mmol/L (3.5-5.1)
[2022-09-20 10:59] LABS: ALBUMIN 3.6 g/dl (3.4-5.0)
[2022-09-20 11:00] LABS: BLOOD UREA NITROGEN 12.6 mg/dL (7-18)
[2022-09-20 11:01] LABS: CALCIUM 8.6 mg/dL (8.5-10.1); HEMATOCRIT 39.8 % (35.4-49); HEMOGLOBIN 13.5 GM/dL (11.7-16.9); MCH 31.6 pg (25.7-33.7); MCHC 33.9 g/dl (32.0-35.9); MEAN CELL VOLUME 93.1 fl (80-96); MEAN PLT VOLUME 8.9 fl (7.5-11.1); PLATELET COUNT 141 10^3/uL (134-434); RBC 4.28 M/mm3 (4.00-5.60); RDW 15.1 % (11.9-15.9); WHITE BLOOD COUNT 5.1 K/mm3 (4.0-10.0)
[2022-09-20 11:02] LABS: CREATININE 0.6 mg/dL (0.55-1.3)
[2022-09-20 11:04] LABS: BILIRUBIN,TOTAL 1.3 mg/dL (0.2-1); TOT PROT 6.9 g/dl (6.4-8.2)
[2022-09-20] MEDS: THIAMINE HCL 100 MG TABLET (FP) PO SCH (22:12)
[2022-09-20] MEDS: MELATONIN 5 MG TABLETS PO SCH (22:12)
[2022-09-21] MEDS: chlordiazePOXIDE HCL 25 MG CAPSULE PO SCH ×4 (05:25→22:13)
[2022-09-21] MEDS: METHOCARBAMOL 500 MG TABLET PO PRN ×2 (05:27→22:12)
[2022-09-21] MEDS: PRENATAL VITAMINS W/ FOLIC ACID TABLET (FP) PO SCH (10:38)
[2022-09-21] MEDS: MELATONIN 5 MG TABLETS PO SCH (22:12)
[2022-09-21] MEDS: THIAMINE HCL 100 MG TABLET (FP) PO SCH (22:13)
[2022-09-22] MEDS ORDERED: chlordiazePOXIDE HCL 10 MG CAPSULE PO PRN
[2022-09-22] MEDS: chlordiazePOXIDE HCL 10 MG CAPSULE PO SCH ×4 (05:30→22:07)
[2022-09-22] MEDS: PRENATAL VITAMINS W/ FOLIC ACID TABLET (FP) PO SCH (10:08)
[2022-09-22] MEDS: THIAMINE HCL 100 MG TABLET (FP) PO SCH (22:08)
[2022-09-22] MEDS: MELATONIN 5 MG TABLETS PO SCH (22:08)
[2022-09-23] MEDS: chlordiazePOXIDE HCL 10 MG CAPSULE PO SCH ×2 (05:45→17:22)
[2022-09-23] MEDS: PRENATAL VITAMINS W/ FOLIC ACID TABLET (FP) PO SCH (09:34)
[2022-09-23] MEDS ORDERED: BACITRACIN 0.9 GM PACKET TP SCH (14:00)
[2022-09-23 21:19] VITALS: TEMP 97.8
[2022-09-23] MEDS: MELATONIN 5 MG TABLETS PO SCH (22:10)
[2022-09-23] MEDS: THIAMINE HCL 100 MG TABLET (FP) PO SCH (22:10)
[2022-09-24] MEDS ORDERED: chlordiazePOXIDE HCL 10 MG CAPSULE PO ONE (05:00)
[2022-09-24 06:04] VITALS: BP 109/69; PULSE 66; RESP 16
== END 2022-09-24 08:49 | disposition home or self-care (01) | DRG 775 ==
LOC: YASAS 15:39 → Y3N 21:41
PROVIDERS: ADMIT Allergy & Immunology; ATTEND Surgery
PROC: HZ2ZZZZ Detoxification Services for Substance Abuse Treatment (ICD-10-PCS; principal; 2022-09-19)
DX: F10.230 Alcohol dependence with withdrawal, uncomplicated (principal); F10.280 Alcohol dependence with alcohol-induced anxiety disorder; F19.24 Other psychoactive substance dependence with psychoactive substance-induced mood disorder; F41.9 Anxiety disorder, unspecified; F32.A Depression, unspecified; Z87.891 Personal history of nicotine dependence
CPT/HCPCS: 36415; 80053; 85027; 86780; 87635

== ENCOUNTER 2022-11-04 22:46 | Inpatient (IN) | payer OTHER ==
[2022-11-04 23:18] VITALS: RESP 18; BMI 25.1
[2022-11-05] MEDS ORDERED: IBUPROFEN 600 MG TABLET (FP) PO PRN (02:36)
[2022-11-05] MEDS ORDERED: BENZONATATE 200 MG CAPSULE PO PRN (02:36)
[2022-11-05] MEDS ORDERED: guaiFENesin 600 MG TABLET.ER (FP) PO PRN (02:36)
[2022-11-05] MEDS ORDERED: DICYCLOMINE HCL 10 MG CAPSULE PO PRN (02:36)
[2022-11-05] MEDS ORDERED: LOPERAMIDE HCL 2 MG CAPSULE PO PRN (02:36)
[2022-11-05] MEDS ORDERED: ONDANSETRON *ODT* 4 MG TABLET SL PRN (02:36)
[2022-11-05] MEDS ORDERED: NALOXONE HCL (KLOXXADO) 8 MG SPRAY NS PRN (02:36)
[2022-11-05] MEDS ORDERED: POLYETHYLENE GLYCOL (HEALTHYLAX) 3350 17 GM PACKET PO PRN (02:36)
[2022-11-05] MEDS ORDERED: BENZOCAINE/MENTHOL (CHLORASEPTIC ) LOZENGE MM PRN (02:36)
[2022-11-05] MEDS ORDERED: BISMUTH SUBSALICYLATE 524 MG/30 ML PO PRN (02:36)
[2022-11-05] MEDS ORDERED: MAG HYDROX/AL HYDROX/SIMETH 30 ML UNIT-DOSE CUP PO PRN (02:36)
[2022-11-05] MEDS ORDERED: MAGNESIUM HYDROX 2400MG/30ML ORAL SUSPENSION 30 ML CUP PO PRN (02:36)
[2022-11-05] MEDS ORDERED: ACETAMINOPHEN 325 MG TABLET (FP) PO PRN (02:36)
[2022-11-05] MEDS ORDERED: METHOCARBAMOL 500 MG TABLET PO PRN (02:36)
[2022-11-05] MEDS ORDERED: IBUPROFEN 400 MG TABLET (FP) PO PRN (02:36)
[2022-11-05] MEDS ORDERED: NALOXONE HCL 0.4 MG/ML VIAL IM PRN (02:36)
[2022-11-05] MEDS ORDERED: chlordiazePOXIDE HCL 25 MG CAPSULE PO PRN (02:43)
[2022-11-05] MEDS: chlordiazePOXIDE HCL 25 MG CAPSULE PO SCH ×2 (05:21→11:32)
[2022-11-05 09:05] VITALS: BP 120/69; PULSE 94; TEMP 97.1
[2022-11-05] MEDS ORDERED: PRENATAL VITAMINS W/ FOLIC ACID TABLET (FP) PO SCH (10:00)
[2022-11-05] MEDS ORDERED: MELATONIN 5 MG TABLETS PO SCH (22:00)
[2022-11-05] MEDS ORDERED: THIAMINE HCL 100 MG TABLET (FP) PO SCH (22:00)
[2022-11-06] MEDS ORDERED: chlordiazePOXIDE HCL 25 MG CAPSULE PO SCH (05:00)
[2022-11-07] MEDS ORDERED: chlordiazePOXIDE HCL 10 MG CAPSULE PO PRN
[2022-11-07] MEDS ORDERED: chlordiazePOXIDE HCL 10 MG CAPSULE PO SCH (05:00)
[2022-11-08] MEDS ORDERED: chlordiazePOXIDE HCL 10 MG CAPSULE PO SCH (05:00)
[2022-11-09] MEDS ORDERED: chlordiazePOXIDE HCL 10 MG CAPSULE PO ONE (05:00)
== END 2022-11-05 11:01 | disposition left against medical advice (07) | DRG 770 ==
LOC: YASAS 22:46 → Y6N 11-05 03:11
PROVIDERS: ADMIT Allergy & Immunology; ATTEND Allergy & Immunology
PROC: HZ2ZZZZ Detoxification Services for Substance Abuse Treatment (ICD-10-PCS; principal; 2022-11-05)
DX: F10.230 Alcohol dependence with withdrawal, uncomplicated (principal); F10.282 Alcohol dependence with alcohol-induced sleep disorder; F10.280 Alcohol dependence with alcohol-induced anxiety disorder; F41.9 Anxiety disorder, unspecified; Z86.59 Personal history of other mental and behavioral disorders
CPT/HCPCS: 87635

== ENCOUNTER 2022-11-05 20:50 | Inpatient (IN) | payer OTHER ==
[2022-11-05 21:46] VITALS: BMI 25.1
[2022-11-05] MEDS ORDERED: chlordiazePOXIDE HCL 25 MG CAPSULE PO PRN (22:09)
[2022-11-05] MEDS ORDERED: guaiFENesin 600 MG TABLET.ER (FP) PO PRN (22:09)
[2022-11-05] MEDS ORDERED: IBUPROFEN 600 MG TABLET (FP) PO PRN (22:09)
[2022-11-05] MEDS ORDERED: NALOXONE HCL 0.4 MG/ML VIAL IM PRN (22:09)
[2022-11-05] MEDS ORDERED: IBUPROFEN 400 MG TABLET (FP) PO PRN (22:09)
[2022-11-05] MEDS ORDERED: BENZOCAINE/MENTHOL (CHLORASEPTIC ) LOZENGE MM PRN (22:09)
[2022-11-05] MEDS ORDERED: MAG HYDROX/AL HYDROX/SIMETH 30 ML UNIT-DOSE CUP PO PRN (22:09)
[2022-11-05] MEDS ORDERED: ACETAMINOPHEN 325 MG TABLET (FP) PO PRN (22:09)
[2022-11-05] MEDS ORDERED: POLYETHYLENE GLYCOL (HEALTHYLAX) 3350 17 GM PACKET PO PRN (22:09)
[2022-11-05] MEDS ORDERED: LOPERAMIDE HCL 2 MG CAPSULE PO PRN (22:09)
[2022-11-05] MEDS ORDERED: ONDANSETRON *ODT* 4 MG TABLET SL PRN (22:09)
[2022-11-05] MEDS ORDERED: BENZONATATE 200 MG CAPSULE PO PRN (22:09)
[2022-11-05] MEDS ORDERED: NALOXONE HCL (KLOXXADO) 8 MG SPRAY NS PRN (22:09)
[2022-11-05] MEDS ORDERED: DICYCLOMINE HCL 10 MG CAPSULE PO PRN (22:09)
[2022-11-05] MEDS ORDERED: BISMUTH SUBSALICYLATE 524 MG/30 ML PO PRN (22:09)
[2022-11-05] MEDS ORDERED: MAGNESIUM HYDROX 2400MG/30ML ORAL SUSPENSION 30 ML CUP PO PRN (22:09)
[2022-11-06] MEDS: chlordiazePOXIDE HCL 25 MG CAPSULE PO SCH ×5 (00:30→22:14)
[2022-11-06] MEDS ORDERED: chlordiazePOXIDE HCL 25 MG CAPSULE ONE (02:40)
[2022-11-06] MEDS: hydrOXYzine PAMOATE 25 MG CAPSULE (FP) PO PRN ×2 (05:44→10:24)
[2022-11-06] MEDS: PRENATAL VITAMINS W/ FOLIC ACID TABLET (FP) PO SCH (10:24)
[2022-11-06] MEDS: THIAMINE HCL 100 MG TABLET (FP) PO SCH (22:13)
[2022-11-06] MEDS: MELATONIN 5 MG TABLETS PO SCH (22:14)
[2022-11-06] MEDS: TETRAHYDROZOLINE HCL EYE DROPS OU PRN (22:16)
[2022-11-06] MEDS: METHOCARBAMOL 500 MG TABLET PO PRN (22:18)
[2022-11-07] MEDS: chlordiazePOXIDE HCL 25 MG CAPSULE PO SCH ×4 (05:32→22:31)
[2022-11-07] MEDS: METHOCARBAMOL 500 MG TABLET PO PRN ×2 (05:34→17:15)
[2022-11-07] MEDS: PRENATAL VITAMINS W/ FOLIC ACID TABLET (FP) PO SCH (10:23)
[2022-11-07] MEDS: hydrOXYzine PAMOATE 25 MG CAPSULE (FP) PO PRN (10:23)
[2022-11-07 13:48] LABS: BASO % 0.6 % (0-2.0); EOS % 2.5 % (0-4.5); HEMATOCRIT 46.5 % (35.4-49); HEMOGLOBIN 15.3 GM/dL (11.7-16.9); LYMPH % 18.5 % (8-40); MCH 31.4 pg (25.7-33.7); MCHC 32.9 g/dl (32.0-35.9); MEAN CELL VOLUME 95.3 fl (80-96); MEAN PLT VOLUME 9.2 fl (7.5-11.1); MONO % 4.8 % (3.8-10.2); NEUT % 73.6 % (42.8-82.8); PLATELET COUNT 192 10^3/uL (134-434); RBC 4.88 M/mm3 (4.00-5.60); RDW 13.9 % (11.9-15.9); WHITE BLOOD COUNT 9.2 K/mm3 (4.0-10.0)
[2022-11-07 14:07] LABS: POTASSIUM 3.8 mmol/L (3.5-5.1)
[2022-11-07 14:11] LABS: CALCIUM 8.9 mg/dL (8.5-10.1)
[2022-11-07 14:12] LABS: ALBUMIN 3.8 g/dl (3.4-5.0); BLOOD UREA NITROGEN 8.6 mg/dL (7-18)
[2022-11-07 14:15] LABS: CREATININE 0.7 mg/dL (0.55-1.3)
[2022-11-07 14:16] LABS: TOT PROT 7.2 g/dl (6.4-8.2)
[2022-11-07] MEDS: THIAMINE HCL 100 MG TABLET (FP) PO SCH (22:31)
[2022-11-07] MEDS: BACITRACIN 0.9 GM PACKET TP SCH (22:31)
[2022-11-07] MEDS: MELATONIN 5 MG TABLETS PO SCH (22:33)
[2022-11-08] MEDS ORDERED: chlordiazePOXIDE HCL 10 MG CAPSULE PO PRN
[2022-11-08] MEDS: chlordiazePOXIDE HCL 10 MG CAPSULE PO SCH ×4 (05:33→22:29)
[2022-11-08] MEDS: METHOCARBAMOL 500 MG TABLET PO PRN (05:36)
[2022-11-08] MEDS: hydrOXYzine PAMOATE 25 MG CAPSULE (FP) PO PRN (05:37)
[2022-11-08] MEDS: BACITRACIN 0.9 GM PACKET TP SCH ×2 (10:12→22:29)
[2022-11-08] MEDS: PRENATAL VITAMINS W/ FOLIC ACID TABLET (FP) PO SCH (10:13)
[2022-11-08] MEDS: TETRAHYDROZOLINE HCL EYE DROPS OU PRN ×2 (10:14→22:29)
[2022-11-08] MEDS ORDERED: HYDROCORTISONE 1% TOPICAL LOTION 118 ML BOTTLE TP PRN (16:06)
[2022-11-08] MEDS ORDERED: MELATONIN 5 MG TABLETS PO PRN (22:00)
[2022-11-08] MEDS: THIAMINE HCL 100 MG TABLET (FP) PO SCH (22:29)
[2022-11-09] MEDS: chlordiazePOXIDE HCL 10 MG CAPSULE PO SCH ×2 (05:21→17:43)
[2022-11-09] MEDS: PRENATAL VITAMINS W/ FOLIC ACID TABLET (FP) PO SCH (10:10)
[2022-11-09] MEDS: BACITRACIN 0.9 GM PACKET TP SCH ×2 (10:10→22:19)
[2022-11-09] MEDS: TETRAHYDROZOLINE HCL EYE DROPS OU PRN (10:12)
[2022-11-09] MEDS: hydrOXYzine PAMOATE 25 MG CAPSULE (FP) PO PRN (17:46)
[2022-11-09] MEDS: THIAMINE HCL 100 MG TABLET (FP) PO SCH (22:19)
[2022-11-10] MEDS ORDERED: chlordiazePOXIDE HCL 10 MG CAPSULE PO ONE (05:00)
[2022-11-10] MEDS: hydrOXYzine PAMOATE 25 MG CAPSULE (FP) PO PRN (05:30)
[2022-11-10 06:26] VITALS: TEMP 97.7
[2022-11-10] MEDS: PRENATAL VITAMINS W/ FOLIC ACID TABLET (FP) PO SCH (09:47)
[2022-11-10] MEDS: BACITRACIN 0.9 GM PACKET TP SCH (09:47)
[2022-11-10 09:55] VITALS: BP 128/81; PULSE 106; RESP 18
== END 2022-11-10 10:33 | disposition home or self-care (01) | DRG 775 ==
LOC: YASAS 20:50 → Y6N 11-06 02:48
PROVIDERS: ADMIT Allergy & Immunology; ATTEND Allergy & Immunology
PROC: HZ2ZZZZ Detoxification Services for Substance Abuse Treatment (ICD-10-PCS; principal; 2022-11-05)
DX: F10.230 Alcohol dependence with withdrawal, uncomplicated (principal); F10.220 Alcohol dependence with intoxication, uncomplicated; F10.282 Alcohol dependence with alcohol-induced sleep disorder; F10.280 Alcohol dependence with alcohol-induced anxiety disorder; F10.24 Alcohol dependence with alcohol-induced mood disorder; Z86.59 Personal history of other mental and behavioral disorders; Z87.891 Personal history of nicotine dependence; Z56.0 Unemployment, unspecified
CPT/HCPCS: 36415; 80053; 85025; 87635; 87811

== ENCOUNTER 2023-01-05 10:04 | Inpatient (IN) | payer OTHER ==
[2023-01-05 10:45] VITALS: BMI 25.7
[2023-01-05] MEDS ORDERED: chlordiazePOXIDE HCL 25 MG CAPSULE PO PRN (12:45)
[2023-01-05] MEDS ORDERED: MAG HYDROX/AL HYDROX/SIMETH 30 ML UNIT-DOSE CUP PO PRN (12:46)
[2023-01-05] MEDS ORDERED: BISMUTH SUBSALICYLATE 524 MG/30 ML PO PRN (12:46)
[2023-01-05] MEDS ORDERED: ACETAMINOPHEN 325 MG TABLET (FP) PO PRN (12:46)
[2023-01-05] MEDS ORDERED: IBUPROFEN 400 MG TABLET (FP) PO PRN (12:46)
[2023-01-05] MEDS ORDERED: DICYCLOMINE HCL 10 MG CAPSULE PO PRN (12:46)
[2023-01-05] MEDS ORDERED: POLYETHYLENE GLYCOL (HEALTHYLAX) 3350 17 GM PACKET PO PRN (12:46)
[2023-01-05] MEDS ORDERED: BENZOCAINE/MENTHOL (CHLORASEPTIC ) LOZENGE MM PRN (12:46)
[2023-01-05] MEDS ORDERED: guaiFENesin 600 MG TABLET.ER (FP) PO PRN (12:46)
[2023-01-05] MEDS ORDERED: NALOXONE HCL (KLOXXADO) 8 MG SPRAY NS PRN (12:46)
[2023-01-05] MEDS ORDERED: LOPERAMIDE HCL 2 MG CAPSULE PO PRN (12:46)
[2023-01-05] MEDS ORDERED: ONDANSETRON *ODT* 4 MG TABLET SL PRN (12:46)
[2023-01-05] MEDS ORDERED: NALOXONE HCL 0.4 MG/ML VIAL IM PRN (12:46)
[2023-01-05] MEDS ORDERED: BENZONATATE 200 MG CAPSULE PO PRN (12:46)
[2023-01-05] MEDS ORDERED: IBUPROFEN 600 MG TABLET (FP) PO PRN (12:46)
[2023-01-05] MEDS ORDERED: MAGNESIUM HYDROX 2400MG/30ML ORAL SUSPENSION 30 ML CUP PO PRN (12:46)
[2023-01-05] MEDS: BACITRACIN ZINC 15 GM TUBE TOPICAL OINTMENT TP SCH ×2 (13:28→22:34)
[2023-01-05] MEDS: METHOCARBAMOL 500 MG TABLET PO PRN ×2 (14:01→22:37)
[2023-01-05] MEDS: hydrOXYzine PAMOATE 25 MG CAPSULE (FP) PO PRN ×2 (14:01→22:37)
[2023-01-05] MEDS: chlordiazePOXIDE HCL 25 MG CAPSULE PO SCH ×2 (17:39→22:35)
[2023-01-05] MEDS ORDERED: THIAMINE HCL 100 MG TABLET (FP) PO SCH (22:00)
[2023-01-05] MEDS ORDERED: MELATONIN 5 MG TABLETS PO SCH (22:00)
[2023-01-06] MEDS: chlordiazePOXIDE HCL 25 MG CAPSULE PO SCH ×2 (05:34→10:03)
[2023-01-06] MEDS: METHOCARBAMOL 500 MG TABLET PO PRN (05:36)
[2023-01-06 09:30] VITALS: BP 127/80; PULSE 84; RESP 16; TEMP 97.8
[2023-01-06] MEDS: BACITRACIN ZINC 15 GM TUBE TOPICAL OINTMENT TP SCH (09:42)
[2023-01-06] MEDS ORDERED: PRENATAL VITAMINS W/ FOLIC ACID TABLET (FP) PO SCH (10:00)
[2023-01-06 10:27] LABS: CALCIUM 8.1 mg/dL (8.5-10.1)
[2023-01-06 10:28] LABS: ALBUMIN 3.4 g/dl (3.4-5.0); BLOOD UREA NITROGEN 11.9 mg/dL (7-18); HEMATOCRIT 40.5 % (35.4-49); HEMOGLOBIN 14.1 GM/dL (11.7-16.9); MCH 31.7 pg (25.7-33.7); MCHC 34.8 g/dl (32.0-35.9); MEAN CELL VOLUME 91.2 fl (80-96); MEAN PLT VOLUME 8.4 fl (7.5-11.1); PLATELET COUNT 229 10^3/uL (134-434); RBC 4.43 M/mm3 (4.00-5.60); RDW 13.5 % (11.9-15.9)
[2023-01-06 10:31] LABS: CREATININE 0.7 mg/dL (0.55-1.3)
[2023-01-06 10:32] LABS: TOT PROT 6.5 g/dl (6.4-8.2)
[2023-01-06 10:33] LABS: BILIRUBIN,TOTAL 1.1 mg/dL (0.2-1)
[2023-01-07] MEDS ORDERED: chlordiazePOXIDE HCL 25 MG CAPSULE PO SCH (05:00)
[2023-01-08] MEDS ORDERED: chlordiazePOXIDE HCL 10 MG CAPSULE PO PRN
[2023-01-08] MEDS ORDERED: chlordiazePOXIDE HCL 10 MG CAPSULE PO SCH (05:00)
[2023-01-09] MEDS ORDERED: chlordiazePOXIDE HCL 10 MG CAPSULE PO SCH (05:00)
[2023-01-10] MEDS ORDERED: chlordiazePOXIDE HCL 10 MG CAPSULE PO ONE (05:00)
== END 2023-01-06 09:44 | disposition left against medical advice (07) | DRG 770 ==
LOC: SUATTDRO 10:04 → YASAS 10:04 → Y3N 13:06
PROVIDERS: ADMIT Allergy & Immunology; ATTEND Surgery
PROC: HZ2ZZZZ Detoxification Services for Substance Abuse Treatment (ICD-10-PCS; principal; 2023-01-05)
DX: F10.230 Alcohol dependence with withdrawal, uncomplicated (principal); F14.20 Cocaine dependence, uncomplicated; F12.20 Cannabis dependence, uncomplicated; F32.A Depression, unspecified; H11.32 Conjunctival hemorrhage, left eye; S22.32XD Fracture of one rib, left side, subsequent encounter for fracture with routine healing; S01.112D Laceration without foreign body of left eyelid and periocular area, subsequent encounter; S60.311D Abrasion of right thumb, subsequent encounter; Y08.89XD Assault by other specified means, subsequent encounter
CPT/HCPCS: 36415; 80053; 85027; 86780; 87635; 87811

== ENCOUNTER 2023-03-18 15:53 | Inpatient (IN) | payer OTHER ==
[2023-03-18 16:25] VITALS: BMI 26.6
[2023-03-18] MEDS ORDERED: BISMUTH SUBSALICYLATE 524 MG/30 ML PO PRN (17:06)
[2023-03-18] MEDS ORDERED: BENZONATATE 200 MG CAPSULE PO PRN (17:06)
[2023-03-18] MEDS ORDERED: MAGNESIUM HYDROX 2400MG/30ML ORAL SUSPENSION 30 ML CUP PO PRN (17:06)
[2023-03-18] MEDS ORDERED: IBUPROFEN 600 MG TABLET (FP) PO PRN (17:06)
[2023-03-18] MEDS ORDERED: POLYETHYLENE GLYCOL (HEALTHYLAX) 3350 17 GM PACKET PO PRN (17:06)
[2023-03-18] MEDS ORDERED: DICYCLOMINE HCL 10 MG CAPSULE PO PRN (17:06)
[2023-03-18] MEDS ORDERED: ONDANSETRON *ODT* 4 MG TABLET SL PRN (17:06)
[2023-03-18] MEDS ORDERED: BENZOCAINE/MENTHOL (CHLORASEPTIC ) LOZENGE MM PRN (17:06)
[2023-03-18] MEDS ORDERED: guaiFENesin 600 MG TABLET.ER (FP) PO PRN (17:06)
[2023-03-18] MEDS ORDERED: LOPERAMIDE HCL 2 MG CAPSULE PO PRN (17:06)
[2023-03-18] MEDS ORDERED: MAG HYDROX/AL HYDROX/SIMETH 30 ML UNIT-DOSE CUP PO PRN (17:06)
[2023-03-18] MEDS ORDERED: ACETAMINOPHEN 325 MG TABLET (FP) PO PRN (17:06)
[2023-03-18] MEDS ORDERED: NALOXONE HCL (KLOXXADO) 8 MG SPRAY NS PRN (17:06)
[2023-03-18] MEDS ORDERED: NALOXONE HCL 0.4 MG/ML VIAL IM PRN (17:06)
[2023-03-18] MEDS ORDERED: IBUPROFEN 400 MG TABLET (FP) PO PRN (17:06)
[2023-03-18] MEDS: ONDANSETRON *ODT* 4 MG TABLET SL ONE (18:48)
[2023-03-18] MEDS: PRENATAL VITAMINS W/ FOLIC ACID TABLET (FP) PO SCH (18:49)
[2023-03-18] MEDS: chlordiazePOXIDE HCL 25 MG CAPSULE PO PRN (18:52)
[2023-03-18] MEDS: BACITRACIN 0.9 GM PACKET TP SCH (22:12)
[2023-03-18] MEDS: THIAMINE HCL 100 MG TABLET (FP) PO SCH (22:12)
[2023-03-18] MEDS: MELATONIN 5 MG TABLETS PO SCH (22:12)
[2023-03-18] MEDS: chlordiazePOXIDE HCL 25 MG CAPSULE PO SCH (22:13)
[2023-03-19] MEDS: METHOCARBAMOL 500 MG TABLET PO PRN (05:49)
[2023-03-19] MEDS: hydrOXYzine PAMOATE 25 MG CAPSULE (FP) PO PRN (05:50)
[2023-03-19 09:49] VITALS: BP 151/87; PULSE 73; RESP 16; TEMP 97.5
[2023-03-20] MEDS ORDERED: chlordiazePOXIDE HCL 25 MG CAPSULE PO SCH (05:00)
[2023-03-21] MEDS ORDERED: chlordiazePOXIDE HCL 10 MG CAPSULE PO PRN
[2023-03-21] MEDS ORDERED: chlordiazePOXIDE HCL 10 MG CAPSULE PO SCH (05:00)
[2023-03-22] MEDS ORDERED: chlordiazePOXIDE HCL 10 MG CAPSULE PO SCH (05:00)
[2023-03-23] MEDS ORDERED: chlordiazePOXIDE HCL 10 MG CAPSULE PO ONE (05:00)
== END 2023-03-19 10:01 | disposition left against medical advice (07) | DRG 770 ==
LOC: YASAS 15:53 → Y3N 18:09
PROVIDERS: ADMIT Allergy & Immunology; ATTEND Surgery
PROC: HZ2ZZZZ Detoxification Services for Substance Abuse Treatment (ICD-10-PCS; principal; 2023-03-18)
DX: F10.230 Alcohol dependence with withdrawal, uncomplicated (principal); F41.9 Anxiety disorder, unspecified; F32.A Depression, unspecified
CPT/HCPCS: 87635

== ENCOUNTER 2023-04-25 13:40 | Inpatient (IN) | payer OTHER ==
[2023-04-25 15:17] VITALS: BMI 24.3
[2023-04-25] MEDS ORDERED: BISMUTH SUBSALICYLATE 524 MG/30 ML PO PRN (16:23)
[2023-04-25] MEDS ORDERED: ACETAMINOPHEN 325 MG TABLET (FP) PO PRN (16:23)
[2023-04-25] MEDS ORDERED: POLYETHYLENE GLYCOL (HEALTHYLAX) 3350 17 GM PACKET PO PRN (16:23)
[2023-04-25] MEDS ORDERED: BENZOCAINE/MENTHOL (CHLORASEPTIC ) LOZENGE MM PRN (16:23)
[2023-04-25] MEDS ORDERED: IBUPROFEN 600 MG TABLET (FP) PO PRN (16:23)
[2023-04-25] MEDS ORDERED: MAGNESIUM HYDROX 2400MG/30ML ORAL SUSPENSION 30 ML CUP PO PRN (16:23)
[2023-04-25] MEDS ORDERED: DICYCLOMINE HCL 10 MG CAPSULE PO PRN (16:23)
[2023-04-25] MEDS ORDERED: DOCUSATE SODIUM 100 MG CAPSULE (FP) PO PRN (16:23)
[2023-04-25] MEDS ORDERED: MAG HYDROX/AL HYDROX/SIMETH 30 ML UNIT-DOSE CUP PO PRN (16:23)
[2023-04-25] MEDS ORDERED: ONDANSETRON *ODT* 4 MG TABLET SL PRN (16:23)
[2023-04-25] MEDS ORDERED: IBUPROFEN 400 MG TABLET (FP) PO PRN (16:23)
[2023-04-25] MEDS ORDERED: P-EPHED 60MG/TRIPROLIDI 2.5MG TABLET PO PRN (16:23)
[2023-04-25] MEDS ORDERED: LOPERAMIDE HCL 2 MG CAPSULE PO PRN (16:23)
[2023-04-25] MEDS ORDERED: guaiFENesin 600 MG TABLET.ER (FP) PO PRN (16:23)
[2023-04-25] MEDS ORDERED: BISACODYL 5 MG TABLET.DR (FP) PO PRN (16:23)
[2023-04-25] MEDS ORDERED: BENZONATATE 200 MG CAPSULE PO PRN (16:23)
[2023-04-25] MEDS ORDERED: chlordiazePOXIDE HCL 25 MG CAPSULE PO PRN (16:25)
[2023-04-25] MEDS: chlordiazePOXIDE HCL 25 MG CAPSULE PO SCH ×2 (17:34→22:23)
[2023-04-25] MEDS: METHOCARBAMOL 500 MG TABLET PO PRN (20:58)
[2023-04-25] MEDS ORDERED: THIAMINE HCL 100 MG TABLET (FP) PO SCH (22:00)
[2023-04-25] MEDS ORDERED: MELATONIN 5 MG TABLETS PO SCH (22:00)
[2023-04-26] MEDS: chlordiazePOXIDE HCL 25 MG CAPSULE PO SCH ×2 (05:30→11:03)
[2023-04-26] MEDS: METHOCARBAMOL 500 MG TABLET PO PRN (05:32)
[2023-04-26] MEDS ORDERED: PRENATAL VITAMINS W/ FOLIC ACID TABLET (FP) PO SCH (10:00)
[2023-04-26 10:37] VITALS: BP 136/84; PULSE 99; RESP 18; TEMP 97.7
[2023-04-26 11:11] LABS: HEMATOCRIT 40.1 % (35.4-49); HEMOGLOBIN 13.4 GM/dL (11.7-16.9); MCH 31.1 pg (25.7-33.7); MCHC 33.4 g/dl (32.0-35.9); MEAN CELL VOLUME 93.3 fl (80-96); MEAN PLT VOLUME 8.9 fl (7.5-11.1); PLATELET COUNT 188 10^3/uL (134-434); RDW 14.4 % (11.9-15.9); WHITE BLOOD COUNT 6.1 K/mm3 (4.0-10.0)
[2023-04-26 11:47] LABS: ALBUMIN 3.5 g/dl (3.4-5.0)
[2023-04-26 11:51] LABS: BILIRUBIN,TOTAL 1.2 mg/dL (0.2-1); TOT PROT 6.6 g/dl (6.4-8.2)
[2023-04-26 11:53] LABS: CREATININE 0.6 mg/dL (0.55-1.3)
[2023-04-27] MEDS ORDERED: chlordiazePOXIDE HCL 25 MG CAPSULE PO SCH (05:00)
[2023-04-28] MEDS ORDERED: chlordiazePOXIDE HCL 10 MG CAPSULE PO PRN
[2023-04-28] MEDS ORDERED: chlordiazePOXIDE HCL 10 MG CAPSULE PO SCH (05:00)
[2023-04-29] MEDS ORDERED: chlordiazePOXIDE HCL 10 MG CAPSULE PO SCH (05:00)
[2023-04-30] MEDS ORDERED: chlordiazePOXIDE HCL 10 MG CAPSULE PO ONE (05:00)
== END 2023-04-26 10:51 | disposition left against medical advice (07) | DRG 770 ==
LOC: YASAS 13:40 → Y6N 16:57
PROVIDERS: ADMIT Allergy & Immunology; ATTEND Allergy & Immunology
PROC: HZ2ZZZZ Detoxification Services for Substance Abuse Treatment (ICD-10-PCS; principal; 2023-04-25)
DX: F10.230 Alcohol dependence with withdrawal, uncomplicated (principal); F19.282 Other psychoactive substance dependence with psychoactive substance-induced sleep disorder; F19.24 Other psychoactive substance dependence with psychoactive substance-induced mood disorder; F32.A Depression, unspecified
CPT/HCPCS: 36415; 80053; 85027; 86780; 87635; 87811

== ENCOUNTER 2023-05-21 17:22 | Inpatient (IN) | payer OTHER ==
[2023-05-21 18:55] VITALS: BMI 24.3
[2023-05-21] MEDS ORDERED: MAGNESIUM HYDROX 2400MG/30ML ORAL SUSPENSION 30 ML CUP PO PRN (20:00)
[2023-05-21] MEDS ORDERED: ACETAMINOPHEN 325 MG TABLET (FP) PO PRN (20:00)
[2023-05-21] MEDS ORDERED: BENZOCAINE/MENTHOL (CHLORASEPTIC ) LOZENGE MM PRN (20:00)
[2023-05-21] MEDS ORDERED: LOPERAMIDE HCL 2 MG CAPSULE PO PRN (20:00)
[2023-05-21] MEDS ORDERED: BISMUTH SUBSALICYLATE 524 MG/30 ML PO PRN (20:00)
[2023-05-21] MEDS ORDERED: BENZONATATE 200 MG CAPSULE PO PRN (20:00)
[2023-05-21] MEDS ORDERED: ONDANSETRON *ODT* 4 MG TABLET SL PRN (20:00)
[2023-05-21] MEDS ORDERED: P-EPHED 60MG/TRIPROLIDI 2.5MG TABLET PO PRN (20:00)
[2023-05-21] MEDS ORDERED: MAG HYDROX/AL HYDROX/SIMETH 30 ML UNIT-DOSE CUP PO PRN (20:00)
[2023-05-21] MEDS ORDERED: guaiFENesin 600 MG TABLET.ER (FP) PO PRN (20:00)
[2023-05-21] MEDS ORDERED: POLYETHYLENE GLYCOL (HEALTHYLAX) 3350 17 GM PACKET PO PRN (20:00)
[2023-05-21] MEDS ORDERED: IBUPROFEN 400 MG TABLET (FP) PO PRN (20:00)
[2023-05-21] MEDS ORDERED: DICYCLOMINE HCL 10 MG CAPSULE PO PRN (20:00)
[2023-05-21] MEDS: THIAMINE HCL 100 MG TABLET (FP) PO SCH (23:05)
[2023-05-21] MEDS: MELATONIN 5 MG TABLETS PO SCH (23:06)
[2023-05-21] MEDS: chlordiazePOXIDE HCL 25 MG CAPSULE PO SCH (23:06)
[2023-05-21] MEDS: METHOCARBAMOL 500 MG TABLET PO PRN (23:09)
[2023-05-21] MEDS: chlordiazePOXIDE HCL 25 MG CAPSULE PO ONE (23:15)
[2023-05-22] MEDS: chlordiazePOXIDE HCL 25 MG CAPSULE PO PRN (08:40)
[2023-05-22] MEDS: PRENATAL VITAMINS W/ FOLIC ACID TABLET (FP) PO SCH (10:10)
[2023-05-22 10:59] LABS: HEMATOCRIT 41.4 % (35.4-49); HEMOGLOBIN 13.8 GM/dL (11.7-16.9); MCH 31.3 pg (25.7-33.7); MCHC 33.4 g/dl (32.0-35.9); MEAN CELL VOLUME 93.8 fl (80-96); MEAN PLT VOLUME 7.7 fl (7.5-11.1); PLATELET COUNT 288 10^3/uL (134-434); RBC 4.41 M/mm3 (4.00-5.60); RDW 14.6 % (11.9-15.9); WHITE BLOOD COUNT 7.7 K/mm3 (4.0-10.0)
[2023-05-22 11:01] LABS: POTASSIUM 4.1 mmol/L (3.5-5.1)
[2023-05-22 11:15] LABS: CALCIUM 8.3 mg/dL (8.5-10.1)
[2023-05-22 11:16] LABS: ALBUMIN 3.6 g/dl (3.4-5.0); BLOOD UREA NITROGEN 14.3 mg/dL (7-18)
[2023-05-22 11:19] LABS: CREATININE 0.7 mg/dL (0.55-1.3); TOT PROT 6.7 g/dl (6.4-8.2)
[2023-05-22 11:21] LABS: BILIRUBIN,TOTAL 0.6 mg/dL (0.2-1)
[2023-05-22] MEDS: hydrOXYzine PAMOATE 25 MG CAPSULE (FP) PO SCH (14:05)
[2023-05-22] MEDS: METHOCARBAMOL 500 MG TABLET PO PRN (17:32)
[2023-05-22] MEDS: hydrOXYzine PAMOATE 50 MG CAPSULE (FP) PO PRN (20:33)
[2023-05-23] MEDS: chlordiazePOXIDE HCL 25 MG CAPSULE PO SCH (05:38)
[2023-05-23] MEDS: IBUPROFEN 600 MG TABLET (FP) PO PRN (22:19)
[2023-05-24] MEDS ORDERED: chlordiazePOXIDE HCL 10 MG CAPSULE PO PRN
[2023-05-24] MEDS: chlordiazePOXIDE HCL 10 MG CAPSULE PO SCH (05:35)
[2023-05-24 16:55] VITALS: RESP 18
[2023-05-25] MEDS: chlordiazePOXIDE HCL 10 MG CAPSULE PO SCH (05:31)
[2023-05-25 09:31] VITALS: BP 116/67; PULSE 63; TEMP 98.9
[2023-05-26] MEDS ORDERED: chlordiazePOXIDE HCL 10 MG CAPSULE PO ONE (05:00)
== END 2023-05-25 09:12 | disposition home or self-care (01) | DRG 775 ==
LOC: YASAS 17:22 → Y3N 20:41
PROVIDERS: ADMIT Allergy & Immunology; ATTEND Surgery
PROC: HZ2ZZZZ Detoxification Services for Substance Abuse Treatment (ICD-10-PCS; principal; 2023-05-21)
DX: F10.230 Alcohol dependence with withdrawal, uncomplicated (principal); F32.A Depression, unspecified
CPT/HCPCS: 36415; 80053; 80307; 85027; 86780; 87635; 93005; 93010

== ENCOUNTER 2023-06-06 12:47 | Inpatient (IN) | payer OTHER ==
[2023-06-06] MEDS ORDERED: ACETAMINOPHEN 325 MG TABLET (FP) PO PRN (13:31)
[2023-06-06] MEDS ORDERED: POLYETHYLENE GLYCOL (HEALTHYLAX) 3350 17 GM PACKET PO PRN (13:31)
[2023-06-06] MEDS ORDERED: guaiFENesin 600 MG TABLET.ER (FP) PO PRN (13:31)
[2023-06-06] MEDS ORDERED: BENZONATATE 200 MG CAPSULE PO PRN (13:31)
[2023-06-06] MEDS ORDERED: ONDANSETRON *ODT* 4 MG TABLET SL PRN (13:31)
[2023-06-06] MEDS ORDERED: BISMUTH SUBSALICYLATE 524 MG/30 ML PO PRN (13:31)
[2023-06-06] MEDS ORDERED: LOPERAMIDE HCL 2 MG CAPSULE PO PRN (13:31)
[2023-06-06] MEDS ORDERED: MAG HYDROX/AL HYDROX/SIMETH 30 ML UNIT-DOSE CUP PO PRN (13:31)
[2023-06-06] MEDS ORDERED: IBUPROFEN 400 MG TABLET (FP) PO PRN (13:31)
[2023-06-06] MEDS ORDERED: BENZOCAINE/MENTHOL (CHLORASEPTIC ) LOZENGE MM PRN (13:31)
[2023-06-06] MEDS ORDERED: DICYCLOMINE HCL 10 MG CAPSULE PO PRN (13:31)
[2023-06-06] MEDS ORDERED: MAGNESIUM HYDROX 2400MG/30ML ORAL SUSPENSION 30 ML CUP PO PRN (13:31)
[2023-06-06 13:32] VITALS: BMI 25.8
[2023-06-06] MEDS ORDERED: chlordiazePOXIDE HCL 25 MG CAPSULE ONE (13:50)
[2023-06-06] MEDS ORDERED: METHOCARBAMOL 500 MG TABLET ONE (13:52)
[2023-06-06] MEDS: METHOCARBAMOL 500 MG TABLET PO PRN (13:53)
[2023-06-06] MEDS ORDERED: IBUPROFEN 600 MG TABLET (FP) PO ONE (13:53)
[2023-06-06] MEDS: chlordiazePOXIDE HCL 25 MG CAPSULE PO ONE (13:54)
[2023-06-06] MEDS: IBUPROFEN 600 MG TABLET (FP) PO PRN (13:55)
[2023-06-06] MEDS: chlordiazePOXIDE HCL 25 MG CAPSULE PO SCH (17:01)
[2023-06-06] MEDS: hydrOXYzine PAMOATE 25 MG CAPSULE (FP) PO PRN (17:02)
[2023-06-06] MEDS: BACITRACIN 0.9 GM PACKET TP PRN (22:34)
[2023-06-06] MEDS: THIAMINE HCL 100 MG TABLET (FP) PO SCH (22:38)
[2023-06-06] MEDS: MELATONIN 5 MG TABLETS PO SCH (22:38)
[2023-06-07] MEDS: PRENATAL VITAMINS W/ FOLIC ACID TABLET (FP) PO SCH (10:11)
[2023-06-07] MEDS: SILVER SULFADIAZINE 1% TOP CREAM 400 GM JAR TP SCH (10:33)
[2023-06-07] MEDS: chlordiazePOXIDE HCL 25 MG CAPSULE PO PRN (15:37)
[2023-06-08] MEDS: chlordiazePOXIDE HCL 25 MG CAPSULE PO SCH (05:35)
[2023-06-08 09:41] VITALS: BP 118/66; PULSE 75; RESP 18; TEMP 97.7
[2023-06-09] MEDS ORDERED: chlordiazePOXIDE HCL 10 MG CAPSULE PO PRN
[2023-06-09] MEDS ORDERED: chlordiazePOXIDE HCL 10 MG CAPSULE PO SCH (05:00)
[2023-06-10] MEDS ORDERED: chlordiazePOXIDE HCL 10 MG CAPSULE PO SCH (05:00)
[2023-06-11] MEDS ORDERED: chlordiazePOXIDE HCL 10 MG CAPSULE PO ONE (05:00)
== END 2023-06-08 09:24 | disposition left against medical advice (07) | DRG 770 ==
LOC: YASAS 12:47 → Y3N 13:35
PROVIDERS: ADMIT Allergy & Immunology; ATTEND Family Medicine Addiction Medicine
PROC: HZ2ZZZZ Detoxification Services for Substance Abuse Treatment (ICD-10-PCS; principal; 2023-06-06)
DX: F10.230 Alcohol dependence with withdrawal, uncomplicated (principal); F14.20 Cocaine dependence, uncomplicated; F12.20 Cannabis dependence, uncomplicated; Z86.59 Personal history of other mental and behavioral disorders
CPT/HCPCS: 80305; 87635; 87811

== ENCOUNTER 2023-08-06 20:26 | Inpatient (IN) | payer OTHER ==
[2023-08-06 21:23] VITALS: BMI 26.6
[2023-08-06] MEDS ORDERED: MAGNESIUM HYDROX 2400MG/30ML ORAL SUSPENSION 30 ML CUP PO PRN (22:52)
[2023-08-06] MEDS ORDERED: POLYETHYLENE GLYCOL (HEALTHYLAX) 3350 17 GM PACKET PO PRN (22:52)
[2023-08-06] MEDS ORDERED: MAG HYDROX/AL HYDROX/SIMETH 30 ML UNIT-DOSE CUP PO PRN (22:52)
[2023-08-06] MEDS ORDERED: BENZONATATE 200 MG CAPSULE PO PRN (22:52)
[2023-08-06] MEDS ORDERED: ONDANSETRON *ODT* 4 MG TABLET SL PRN (22:52)
[2023-08-06] MEDS ORDERED: IBUPROFEN 400 MG TABLET (FP) PO PRN (22:52)
[2023-08-06] MEDS ORDERED: P-EPHED 60MG/TRIPROLIDI 2.5MG TABLET PO PRN (22:52)
[2023-08-06] MEDS ORDERED: DICYCLOMINE HCL 10 MG CAPSULE PO PRN (22:52)
[2023-08-06] MEDS ORDERED: BENZOCAINE/MENTHOL (CHLORASEPTIC ) LOZENGE MM PRN (22:52)
[2023-08-06] MEDS ORDERED: guaiFENesin 600 MG TABLET.ER (FP) PO PRN (22:52)
[2023-08-06] MEDS ORDERED: LOPERAMIDE HCL 2 MG CAPSULE PO PRN (22:52)
[2023-08-06] MEDS ORDERED: IBUPROFEN 600 MG TABLET (FP) PO PRN (22:52)
[2023-08-06] MEDS ORDERED: ACETAMINOPHEN 325 MG TABLET (FP) PO PRN (22:52)
[2023-08-06] MEDS ORDERED: BISMUTH SUBSALICYLATE 524 MG/30 ML PO PRN (22:52)
[2023-08-07] MEDS ORDERED: diazePAM 5 MG TABLET ONE (01:06)
[2023-08-07] MEDS: diazePAM 5 MG TABLET PO PRN (01:08)
[2023-08-07] MEDS: METHOCARBAMOL 500 MG TABLET PO PRN (01:37)
[2023-08-07] MEDS: diazePAM 5 MG TABLET PO SCH (05:24)
[2023-08-07] MEDS: PRENATAL VITAMINS W/ FOLIC ACID TABLET (FP) PO SCH (10:08)
[2023-08-07 11:43] LABS: POTASSIUM 4.2 mmol/L (3.5-5.1)
[2023-08-07 11:47] LABS: HEMATOCRIT 40.9 % (35.4-49); HEMOGLOBIN 14.3 GM/dL (11.7-16.9); MCH 31.7 pg (25.7-33.7); MCHC 34.9 g/dl (32.0-35.9); MEAN CELL VOLUME 90.9 fl (80-96); MEAN PLT VOLUME 8.3 fl (7.5-11.1); PLATELET COUNT 225 10^3/uL (134-434); RDW 13.9 % (11.9-15.9); WHITE BLOOD COUNT 7.8 K/mm3 (4.0-10.0)
[2023-08-07 11:51] LABS: CALCIUM 8.5 mg/dL (8.5-10.1)
[2023-08-07] MEDS: LORATADINE 10 MG TABLET PO SCH (11:51)
[2023-08-07 11:52] LABS: ALBUMIN 3.3 g/dl (3.4-5.0)
[2023-08-07 11:55] LABS: CREATININE 0.6 mg/dL (0.55-1.3)
[2023-08-07 11:56] LABS: BILIRUBIN,TOTAL 0.6 mg/dL (0.2-1); TOT PROT 6.7 g/dl (6.4-8.2)
[2023-08-07 11:57] LABS: BLOOD UREA NITROGEN 17.6 mg/dL (7-18)
[2023-08-07] MEDS: MELATONIN 5 MG TABLETS PO SCH (22:13)
[2023-08-07] MEDS: THIAMINE 100 MG TABLET PO SCH (22:13)
[2023-08-08] MEDS: diazePAM 5 MG TABLET PO SCH (05:29)
[2023-08-09] MEDS: diazePAM 5 MG TABLET PO SCH (05:59)
[2023-08-09 17:09] VITALS: RESP 18
[2023-08-09] MEDS: amLODIPine BESYLATE 10 MG TABLET (FP) PO SCH (18:50)
[2023-08-10] MEDS: diazePAM 5 MG TABLET PO ONE (05:55)
[2023-08-10 06:51] VITALS: BP 130/71; PULSE 84; TEMP 97.6
== END 2023-08-10 08:55 | disposition home or self-care (01) | DRG 774 ==
LOC: YASAS 20:26 → Y3N 23:47
PROVIDERS: ADMIT Allergy & Immunology; ATTEND Surgery
PROC: HZ2ZZZZ Detoxification Services for Substance Abuse Treatment (ICD-10-PCS; principal; 2023-08-06)
DX: F10.230 Alcohol dependence with withdrawal, uncomplicated (principal); F10.220 Alcohol dependence with intoxication, uncomplicated; F14.20 Cocaine dependence, uncomplicated; F12.20 Cannabis dependence, uncomplicated; F32.A Depression, unspecified; R00.0 Tachycardia, unspecified; Z56.0 Unemployment, unspecified
CPT/HCPCS: 36415; 80053; 80305; 85027; 86780

== ENCOUNTER 2023-10-09 17:45 | Inpatient (IN) | payer OTHER ==
[2023-10-09 18:23] VITALS: BMI 26.2
[2023-10-09] MEDS ORDERED: DICYCLOMINE HCL 10 MG CAPSULE PO PRN (18:53)
[2023-10-09] MEDS ORDERED: MELATONIN 5 MG TABLETS PO ONE (18:53)
[2023-10-09] MEDS ORDERED: IBUPROFEN 400 MG TABLET (FP) PO PRN (18:53)
[2023-10-09] MEDS ORDERED: ACETAMINOPHEN 325 MG TABLET (FP) PO PRN (18:53)
[2023-10-09] MEDS ORDERED: LOPERAMIDE HCL 2 MG CAPSULE PO PRN (18:53)
[2023-10-09] MEDS: diazePAM 5 MG TABLET PO PRN (20:18)
[2023-10-09] MEDS: hydrOXYzine PAMOATE 25 MG CAPSULE (FP) PO PRN (20:18)
[2023-10-09] MEDS: THIAMINE 100 MG TABLET PO SCH (22:09)
[2023-10-09] MEDS: MELATONIN 5 MG TABLETS PO ONE (22:09)
[2023-10-09] MEDS: diazePAM 5 MG TABLET PO SCH (23:10)
[2023-10-10] MEDS: METHOCARBAMOL 500 MG TABLET PO PRN (06:08)
[2023-10-10] MEDS: PRENATAL VITAMINS W/ FOLIC ACID TABLET (FP) PO SCH (11:04)
[2023-10-10 11:57] LABS: HEMATOCRIT 39.2 % (35.4-49); HEMOGLOBIN 13.3 GM/dL (11.7-16.9); MCH 30.8 pg (25.7-33.7); MEAN CELL VOLUME 90.6 fl (80-96); PLATELET COUNT 200 10^3/uL (134-434); RBC 4.33 M/mm3 (4.00-5.60); RDW 14.1 % (11.9-15.9); WHITE BLOOD COUNT 7.4 K/mm3 (4.0-10.0)
[2023-10-10 12:10] LABS: ALBUMIN 3.3 g/dl (3.4-5.0); BLOOD UREA NITROGEN 16.8 mg/dL (7-18); CALCIUM 8.4 mg/dL (8.5-10.1)
[2023-10-10 12:13] LABS: CREATININE 0.7 mg/dL (0.55-1.3)
[2023-10-10 12:15] LABS: BILIRUBIN,TOTAL 0.6 mg/dL (0.2-1); TOT PROT 6.5 g/dl (6.4-8.2)
[2023-10-10] MEDS: ONDANSETRON *ODT* 4 MG TABLET SL PRN (17:52)
[2023-10-11] MEDS: diazePAM 5 MG TABLET PO SCH (06:16)
[2023-10-12] MEDS: diazePAM 5 MG TABLET PO SCH (05:38)
[2023-10-12] MEDS: NALTREXONE HCL 50 MG TABLET PO SCH (12:02)
[2023-10-13] MEDS: diazePAM 5 MG TABLET PO ONE (05:34)
[2023-10-13 09:45] VITALS: BP 120/75; PULSE 85; RESP 16; TEMP 98
== END 2023-10-13 09:17 | disposition home or self-care (01) | DRG 774 ==
LOC: YASAS 17:45 → Y6N 19:49
PROVIDERS: ADMIT Allergy & Immunology; ATTEND Surgery
PROC: HZ2ZZZZ Detoxification Services for Substance Abuse Treatment (ICD-10-PCS; principal; 2023-10-09)
DX: F10.230 Alcohol dependence with withdrawal, uncomplicated (principal); F14.20 Cocaine dependence, uncomplicated; F12.20 Cannabis dependence, uncomplicated; F19.24 Other psychoactive substance dependence with psychoactive substance-induced mood disorder; Z87.891 Personal history of nicotine dependence
CPT/HCPCS: 36415; 80053; 80305; 80307; 85027; 86780; 93005; 93010; Q0162